=== PATIENT | female | born 1960 | race Caucasian/White ===

== ENCOUNTER 2017-01-19 09:30 | Outpatient (CLI) | payer OTHER ==
--- NOTE | 2017-01-19 11:40 | PRG ---
DATE OF SERVICE: 01/19/2017 HISTORY: Ms. Carey Layne is a very pleasant 56-year-old who presents to the Wound Center for eval uation of an ulceration of the right medial lower leg. The patient previously stated that the ulcer ation began after minor trauma. The patient stated that she hit her right medial lower leg against the brake of her walker approximately 4 weeks prior to her initial presentation to the Wound Center. The patient was seen in the Emergency Department on 11/20/2016 for increased drainage associated w ith her wound. At this time, the patient was placed on Bactrim DS and referred to the Wound Center for further evaluation and treatment. After being seen in the Wound Center, Silverlon, Webril, and 3M Coban 2 layer compression system was applied to the ulceration of the right medial lower leg. Th e patient has been receiving the preceding dressing changes on a weekly basis here in the Wound Cent er. PHYSICAL EXAMINATION: VITAL SIGNS: Temperature 97.8, pulse 78, respirations 17, blood pressure 197/91. Accu-Chek 128. EXTREMITIES: An ulceration of the right medial lower leg is present which measures approximately 1. 6 x 0.8 cm. The dimensions of the wound at the time of the patient's visit on 01/05/2017 were appro ximately 2.9 x 1.6 cm. Granulation tissue is present within the wound margins. Necrotic and nonvia ble tissue present within the wound margins was debrided with an excisional full-thickness debrideme nt with the use of a curette. No purulent drainage is associated with the wound. No cellulitis of the right lower leg is appreciated. No maceration of the skin of the periwound is noted. No signif icant edema of the right foot or lower leg is present on exam today. ASSESSMENT AND PLAN: 1. Chronic venous hypertension with ulcer and inflammation. The patient has previously undergone v enous ablation on the right by Dr. Cardenas in addition to venous ablation on the left subsequently at [facility]. Silverlon, Webril, and the 3M Coban two-layer compression system will be appli ed to the ulceration today. I will see Ms. Layne again in one week. 2. Diabetes mellitus. The patient's Accu-Chek in clinic today is 128. The patient has been remind ed that for optimal wound healing, her blood glucoses should remain below 150. 3. Hypertension. 4. History of deep venous thrombosis of right lower extremity and left lower extremity. 5. Gout. 6. Chronic kidney disease stage 3.
[2017-01-19] MEDS ORDERED: Sodium Chloride 0.9% 15 ML NEB ONE (16:20)
== END 2017-01-19 09:31 | disposition home or self-care (01) ==
LOC: WCC 09:30
PROVIDERS: ATTEND Family Medicine
DX: S81.801D Unspecified open wound, right lower leg, subsequent encounter (principal); S81.802D Unspecified open wound, left lower leg, subsequent encounter
CPT/HCPCS: 11042; A4218

== ENCOUNTER 2017-01-26 10:11 | Outpatient (CLI) | payer OTHER ==
--- NOTE | 2017-01-26 12:00 | PRG ---
DATE OF SERVICE: 01/26/2017 HISTORY: Ms. Carey Layne is a very pleasant 56-year-old who presents to the Wound Center for eval uation of an ulceration of the right medial lower leg. The patient previously stated that the ulcer ation began after minor trauma. The patient stated that she hit her right medial lower leg against a brake of her walker approximately 4 weeks prior to her initial presentation to the Wound Center. The patient was seen in the Emergency Department on 11/20/2016 for increased drainage associated wit h her wound. At this time, the patient was placed on Bactrim DS and referred to the Wound Center [facility] further evaluation and treatment. After being seen in the Wound Center, Silverlon, Webril, and 3M Coban 2 layer compression system were applied to the ulceration of the right medial lower leg. The patient has been receiving the preceding dressing changes on a weekly basis here in the [facility]. PHYSICAL EXAMINATION: VITAL SIGNS: Temperature 98.5, pulse 80, respirations 19, blood pressure 174/88. Accu-Chek 96. EXTREMITIES: An ulceration of the right medial lower leg is present which measures approximately 1. 4 x 0.6 cm. The dimensions of the wound at the time of the patient's visit on 01/19/2017 were appro ximately 1.6 x 0.8 cm. Granulation tissue is present within the wound margins. Necrotic and nonvia ble tissue present within the wound margins was debrided with an excisional full-thickness debrideme nt with the use of a curet. No purulent drainage is associated with the wound. No cellulitis of th e right lower leg is appreciated. No maceration of the skin of the periwound is noted. A dorsalis pedis pulse is palpable on the right. No significant edema of the right foot or lower leg is presen t on exam today. ASSESSMENT AND PLAN: 1. Chronic venous hypertension with ulcer and inflammation. The patient has previously undergone v enous ablation on the right by Dr. Cardenas in addition to venous ablation on the left and subseque ntly at [facility]. Silverlon, Webril, and 3M Coban two-layer compression system will be appli ed to the ulceration today. I will see Ms. Layne again in 1 week. 2. Diabetes mellitus. The patient's Accu-Chek in clinic today is 96. The patient has been reminde d that for optimal wound healing, her blood glucoses should remain below 150. 3. Hypertension. 4. History of deep venous thrombosis of right lower extremity and left lower extremity. 5. Gout. 6. Chronic kidney disease stage 3.
[2017-01-26] MEDS ORDERED: Sodium Chloride 0.9% 15 ML NEB ONE (17:27)
[2017-01-26] MEDS ORDERED: Lidocaine 2% Jelly 5 ML TUBE ONE (17:27)
== END 2017-01-26 10:12 | disposition home or self-care (01) ==
LOC: WCC 10:11
PROVIDERS: ATTEND Family Medicine
DX: I87.331 Chronic venous hypertension (idiopathic) with ulcer and inflammation of right lower extremity (principal); E11.22 Type 2 diabetes mellitus with diabetic chronic kidney disease; I12.9 Hypertensive chronic kidney disease with stage 1 through stage 4 chronic kidney disease, or unspecified chronic kidney disease; N18.3 Chronic kidney disease, stage 3 (moderate); M10.9 Gout, unspecified
CPT/HCPCS: 11042; A4218

== ENCOUNTER 2017-02-02 08:47 | Outpatient (CLI) | payer OTHER ==
--- NOTE | 2017-02-02 11:47 | PRG ---
DATE OF SERVICE: 02/02/2017 SUBJECTIVE: Ms. Carey Layne is a very pleasant 56-year-old, who presents to the Wound Center for evaluation of an ulceration of the right medial lower leg. The patient previously stated that the u lceration began after minor trauma. The patient stated that she hit her right medial lower leg agai nst the brake of her walker approximately 4 weeks prior to her initial presentation to the Wound [facility]. The patient was seen in the Emergency Department on 11/20/2016 for increased drainage associat ed with her wound. At this time, the patient was placed on Bactrim DS and referred to the Wound [facility] for further evaluation and treatment. After being seen in the Wound Center, Silverlon, Webril, and 3M Coban 2 layer compression system were applied to the ulceration of the right medial lower leg . The patient has been receiving the preceding dressing changes on a weekly basis here in the Wound Center. PHYSICAL EXAMINATION: VITAL SIGNS: Temperature 98.5, pulse 76, respirations 17, blood pressure 189/89. Accu-Chek 200. EXTREMITIES: An ulceration of the right medial lower leg is present, which measures approximately 1 .8 x 0.8 cm. Granulation tissue is present within the wound margins. Necrotic and nonviable tissue present within the wound margins was debrided with an excisional full-thickness debridement with th e use of a curette. No purulent drainage is associated with the wound. No cellulitis of the right lower leg is appreciated. No maceration of the skin of the periwound is noted. No significant macey a of the right foot or lower leg is present on exam today. ASSESSMENT AND PLAN: 1. Chronic venous hypertension with ulcer and inflammation. The patient has previously undergone v enous ablation on the right by Dr. Cardenas in addition to venous ablation on the left subsequently at [facility]. Promogran, Silverlon, Webril, and the 3M Coban 2 layer compression system will be applied to the ulceration today. I will see Ms. Layne again in 1 week. 2. Diabetes mellitus. The patient's Accu-Chek in clinic today is 200. The patient has been remind ed that for optimal wound healing, her blood glucoses should remain below 150. 3. Hypertension. 4. History of deep venous thrombosis of right lower extremity and left lower extremity. 5. Gout. 6. Chronic kidney disease stage 3.
[2017-02-02] MEDS ORDERED: Sodium Chloride 0.9% 15 ML NEB ONE (17:26)
[2017-02-02] MEDS ORDERED: Lidocaine 2% Jelly 5 ML TUBE ONE (17:26)
== END 2017-02-02 08:48 | disposition home or self-care (01) ==
LOC: WCC 08:47
PROVIDERS: ATTEND Family Medicine
DX: I87.331 Chronic venous hypertension (idiopathic) with ulcer and inflammation of right lower extremity (principal); L97.919 Non-pressure chronic ulcer of unspecified part of right lower leg with unspecified severity; E11.622 Type 2 diabetes mellitus with other skin ulcer; M10.9 Gout, unspecified; I12.9 Hypertensive chronic kidney disease with stage 1 through stage 4 chronic kidney disease, or unspecified chronic kidney disease; N18.3 Chronic kidney disease, stage 3 (moderate); E11.22 Type 2 diabetes mellitus with diabetic chronic kidney disease
CPT/HCPCS: 11042; A4218

== ENCOUNTER 2017-02-16 08:48 | Outpatient (CLI) | payer OTHER ==
--- NOTE | 2017-02-16 10:15 | PRG ---
DATE OF SERVICE: 02/16/2017 HISTORY: Ms. Carey Layne is a very pleasant 56-year-old who presents to the Wound Center for eval uation of an ulceration of the right medial lower leg. The patient previously stated that the ulcer ation began after minor trauma. The patient stated that she hit her right medial lower leg against a brake of her walker approximately 4 weeks prior to her initial presentation to the Wound Center. The patient was seen in the Emergency Department on 11/20/2016 for increased drainage associated wit h her wound. At this time, the patient was placed on Bactrim DS and referred to the Wound Center fo r further evaluation and treatment. After being seen in the Wound Center, Silverlon, Webril, and 3M Coban 2 layer compression system were applied to the ulceration of the right medial lower leg. The patient has been receiving dressing changes of the 3M Coban 2 layer compression system on a weekly basis here in the Wound Center. Promogran has also been added to the patient's regimen. PHYSICAL EXAMINATION: VITAL SIGNS: Temperature 97.9, pulse 75, respirations 17, blood pressure 190/87. Accu-Chek 174. EXTREMITIES: An ulceration of the right medial lower leg is present which measures approximately 1. 3 x 0.6 cm. The dimensions of the wound at the time of the patient's visit on 02/02/2017 were appro ximately 1.8 x 0.8 cm. Granulation tissue is present within the wound margins. Necrotic and nonvia ble tissue present within the wound margins was debrided with an excisional full-thickness debrideme nt with the use of a curet. No purulent drainage is associated with the wound. No cellulitis of th e right lower leg is appreciated. No maceration of the skin of the periwound is noted. A dorsalis pedis pulse is palpable on the right. No significant edema of the right foot or lower leg is presen t on exam today. ASSESSMENT AND PLAN: 1. Chronic venous hypertension with ulcer and inflammation. The patient has previously undergone v enous ablation on the right by Dr. Cardenas in addition to venous ablation on the left subsequently at [facility]. Promogran, Silverlon, Webril, and the 3M Coban two-layer compression system wi ll be applied to the ulceration today. I will see Ms. Layne again in 1 week. 2. Diabetes mellitus. The patient's Accu-Chek in clinic today is 174. The patient has been remind ed that for optimal wound healing, her blood glucoses should remain below 150. 3. Hypertension. 4. History of deep venous thrombosis of right lower extremity and left lower extremity. 5. Gout. 6. Chronic kidney disease stage 3.
[2017-02-16] MEDS ORDERED: Lidocaine 2% Jelly 5 ML TUBE ONE (17:01)
[2017-02-16] MEDS ORDERED: Sodium Chloride 0.9% 15 ML NEB ONE (17:01)
== END 2017-02-16 08:49 | disposition home or self-care (01) ==
LOC: WCC 08:48
PROVIDERS: ATTEND Family Medicine
DX: I87.331 Chronic venous hypertension (idiopathic) with ulcer and inflammation of right lower extremity (principal); L97.919 Non-pressure chronic ulcer of unspecified part of right lower leg with unspecified severity; E11.622 Type 2 diabetes mellitus with other skin ulcer; M10.9 Gout, unspecified; I12.9 Hypertensive chronic kidney disease with stage 1 through stage 4 chronic kidney disease, or unspecified chronic kidney disease; E11.22 Type 2 diabetes mellitus with diabetic chronic kidney disease; N18.3 Chronic kidney disease, stage 3 (moderate)
CPT/HCPCS: 11042; A4218

== ENCOUNTER 2017-05-16 10:27 | Outpatient (CLI) | payer OTHER ==
--- NOTE | 2017-05-16 11:46 | PRG ---
DATE OF SERVICE: 05/16/2017 HISTORY: Ms. Carey Layne is a very pleasant 56-year-old previously seen in the Wound Center for an ulceration of the right medial lower leg. This ulceration has almost healed completely, and the patient is presently performing dressing changes of Silverlon followed by a waterproof dressing. Today, Ms. Layne presents for evaluation of an ulceration of the left heel. The patient states that a blister of her left heel developed all of a sudden approximately 4 days ago. She denies any history of trauma or ill-fitting shoes which may have precipitated the appearance of the blister. The patient states that she was evaluated in the Emergency Department yesterday and at this time referred to the Wound Center for further evaluation and treatment. The patient states that the wound of her left heel was dressed with an antibiotic ointment in the Emergency Department followed by 4 x 4s and Kerlix. Today, the patient states that she cleansed her left heel wound with saline and then applied 4 x 4s and Kerlix. PHYSICAL EXAMINATION: VITAL SIGNS: Temperature 98.1, pulse 78, respirations 20, blood pressure 227/ 111. Accu-Chek 160. EXTREMITIES: An ulceration of the left heel is present which measures approximately 3.5 x 4.0 cm. Granulation tissue is present within the wound margins. Necrotic and nonviable tissue present within the wound margins was debrided with an excisional full-thickness debridement with the use of a curette and scissors. No purulent drainage is associated with the wound. Erythema of the skin surrounding the wound is present. No maceration of the skin of the periwound is noted. A dorsalis pedis pulse is palpable on the left. No significant edema of the left foot or lower leg is present on exam today. ASSESSMENT AND PLAN: 1. Left heel ulceration as described above. Dressing changes of Silverlon, 4 x 4s, and Kerlix will be initiated today. These dressing changes are to be performed on a daily basis or alternatively three times per week after cleansing and irrigation. The patient will be performing her own dressing changes. The patient has also been given a prescription for Bactrim DS #20 one p.o. b.i.d. x10 days. The patient reports a history of a Staphylococcal infection in association with one of her previous back surgeries. I will see Ms. Trim again in 1 week. 2. Chronic venous hypertension with ulcer and inflammation. The ulceration of the right medial lower leg has almost healed completely. Dressing changes of Silverlon and bordered gauze are also to be performed on a daily basis or alternatively three times per week after cleansing and irrigation. 3. Diabetes mellitus. The patient's Accu-Chek in clinic today is 160. The patient has been told that for optimal wound healing, her blood glucoses should remain below 150. 4. Hypertension. The patient has been referred to the Emergency Department for further evaluation and treatment. The patient has been told that if she chooses not to report to the Emergency Department today, she should notify her primary care physician today of her blood pressure measurement obtained in clinic today. 5. History of deep venous thrombosis of right lower extremity and left lower extremity. 6. Gout. 7. Chronic kidney disease stage 3. MTDD
[2017-05-16] MEDS ORDERED: Lidocaine 2% Jelly 5 ML TUBE ONE (16:55)
[2017-05-16] MEDS ORDERED: Lidocaine 2% MPF 10 ML AMP (For Epidural Use) ONE (16:55)
== END 2017-05-16 10:28 | disposition home or self-care (01) ==
LOC: WCC 10:27
PROVIDERS: ATTEND Family Medicine
DX: E11.622 Type 2 diabetes mellitus with other skin ulcer (principal); L97.429 Non-pressure chronic ulcer of left heel and midfoot with unspecified severity; I87.321 Chronic venous hypertension (idiopathic) with inflammation of right lower extremity; I12.9 Hypertensive chronic kidney disease with stage 1 through stage 4 chronic kidney disease, or unspecified chronic kidney disease; E11.22 Type 2 diabetes mellitus with diabetic chronic kidney disease; N18.3 Chronic kidney disease, stage 3 (moderate); M10.9 Gout, unspecified; Z86.718 Personal history of other venous thrombosis and embolism
CPT/HCPCS: 11042; 99212; G0463; J2001

== ENCOUNTER 2017-05-23 09:41 | Outpatient (CLI) | payer OTHER ==
--- NOTE | 2017-05-23 11:30 | PRG ---
DATE OF SERVICE: 05/23/2017 HISTORY: Ms. Carey Layne is a very pleasant 57-year-old who presents to the Wound Center for evaluation of an ulceration of the left heel. On 05/16/2017 the patient stated that a blister of her left heel developed all of a sudden, approximately 4 days previously. She denied any history of trauma or ill- fitting shoes, which may have precipitated the appearance of the blister. The patient stated that she was evaluated in the Emergency Department on 05/15/2017 and at this time referred to the Wound Center for further evaluation and treatment. The patient stated that the wound of her left heel was dressed with an antibiotic ointment in the Emergency Department followed by 4 x 4s and Kerlix. The patient states she later cleansed her wound of the left heel with saline and applied 4 x 4s and Kerlix. After being seen in the Wound Center, dressing changes of Silverlon, 4 x 4s, Kerlix, and Coban were initiated. The patient states she has been performing these dressing changes 2-3 times per week after cleansing and irrigation. PHYSICAL EXAMINATION: VITAL SIGNS: Temperature 97.5, pulse 63, respirations 19, blood pressure 160/ 83. Accu-Chek 167. EXTREMITIES: An ulceration of the left heel is present, which measures approximately 2.3 x 2.5 cm. Granulation tissue is present within the wound margins. Necrotic and nonviable tissue present within the wound margins was debrided with an excisional full-thickness debridement with the use of a curette. No purulent drainage is associated with the wound. No erythema of the skin surrounding the wound is present. No maceration of the skin of the periwound is noted. A dorsalis pedis pulse is palpable on the left. No significant edema of the left foot or lower leg is present on exam today. ASSESSMENT AND PLAN: 1. Left heel ulceration as described above. Dressing changes of Silverlon, 4 x 4s, Kerlix, and Coban will be continued 3 times per week after cleansing and irrigation. The patient will be performing her own dressing changes. The patient has been asked to continue Bactrim DS as previously prescribed. The patient previously reported a history of a Staphylococcal infection in association with one of her prior back surgeries. I will see Ms. Layne again in 1 week. 2. Chronic venous hypertension with ulcer and inflammation. The ulceration of the right medial lower leg has healed completely. 3. Diabetes mellitus. The patient's Accu-Chek in clinic today is 167. The patient has been reminded that for optimal wound healing, her blood glucoses should remain below 150. 4. Hypertension. 5. History of deep venous thrombosis of right lower extremity and left lower extremity. 6. Gout. 7. Chronic kidney disease, stage 3. MTDD
== END 2017-05-23 09:42 | disposition home or self-care (01) ==
LOC: WCC 09:41
PROVIDERS: ATTEND Family Medicine
DX: S91.302D Unspecified open wound, left foot, subsequent encounter (principal); S81.001D Unspecified open wound, right knee, subsequent encounter
CPT/HCPCS: 11042

== ENCOUNTER 2018-08-09 10:41 | Outpatient (CLI) | payer OTHER ==
--- NOTE | 2018-08-09 09:44 | PRG ---
DATE OF SERVICE: 08/09/2018 HISTORY: Ms. Carey Layne is a very pleasant 58-year-old who presents to the Wound Center for evaluation of an ulceration of the right anterior lower leg. The patient states that the wound began after her vacuum ribbon cleaner slipped from her hands falling on to her right anterior lower leg. The patient states that she developed a "blood blister" for which she has been seen by her primary care provider and in the emergency department. The patient was last seen in the Wound Center on 05/23/2017 for an ulceration of the left heel. The patient has no other complaints today. She denies any fever or chills. PHYSICAL EXAMINATION: VITAL SIGNS: Temperature 97.8, pulse 79, respirations 16, blood pressure 176/79. Accu-Chek 174. EXTREMITIES: An ulceration of the right anterior lower leg is present which measures approximately 2.7 x 2.2 cm. Eschar covers the wound bed in its entirety. No purulent drainage is associated with the wound. No erythema of the skin surrounding the wound is present. No maceration of the skin of the periwound is noted. A dorsalis pedis pulse is palpable on the right. Lirg-af-grsylksp edema of the right foot and lower leg is present on exam today. ASSESSMENT AND PLAN: 1. Chronic venous hypertension with ulceration. Silvercel, Webril and the 3M Coban 2 Layer Compression System will be applied to the ulceration today. No antibiotics will be prescribed today based upon the appearance of the wound. I will see Ms. Layne again in 1 week. The patient has been asked to keep compression wrap applied in clinic today, clean and dry until her followup visit in 1 week. 2. Diabetes mellitus. The patient's Accu-Chek in clinic today is 174. The patient has been told that for optimal wound healing her blood glucoses should remain below 150. 3. Hypertension. 4. History of deep venous thrombosis of right lower extremity and left lower extremity. 5. Gout. 6. Chronic kidney disease stage 3. Job ID: [id number]
[2018-08-09] MEDS ORDERED: Sodium Chloride 0.9% 15 ML NEB ONE (15:05)
== END 2018-08-09 10:42 | disposition home or self-care (01) ==
LOC: WCC 10:41
PROVIDERS: ATTEND Family Medicine
DX: I87.311 Chronic venous hypertension (idiopathic) with ulcer of right lower extremity (principal); E11.622 Type 2 diabetes mellitus with other skin ulcer; L97.919 Non-pressure chronic ulcer of unspecified part of right lower leg with unspecified severity; M10.9 Gout, unspecified; I12.9 Hypertensive chronic kidney disease with stage 1 through stage 4 chronic kidney disease, or unspecified chronic kidney disease; E11.22 Type 2 diabetes mellitus with diabetic chronic kidney disease; N18.3 Chronic kidney disease, stage 3 (moderate); Z86.718 Personal history of other venous thrombosis and embolism
CPT/HCPCS: 97602; 99213; A4218; G0463

== ENCOUNTER 2018-08-16 10:07 | Outpatient (CLI) | payer OTHER ==
[~2018-08-16 10:07] MED LIST: Lidocaine 2% PF 100 mg/5 ml Syringe ONE; Sodium Chloride 0.9% 15 ML NEB ONE
--- NOTE | 2018-08-16 13:50 | PRG ---
DATE OF SERVICE: 08/16/2018 HISTORY: Ms. Carey Layne is a very pleasant 58-year-old, who presents to the Wound Center for evaluation of an ulceration of the right anterior lower leg. The patient previously stated that the wound began after her vacuum aircraft cabin cleaner slipped from her hands falling on to her right anterior lower leg. The patient stated that she developed a "blood blister," for which she was seen by her primary care provider and in the emergency department. At the time of the patient's last visit, Silvercel, Webril and the 3M Coban 2 Layer Compression System were applied to the ulceration. PHYSICAL EXAMINATION: VITAL SIGNS: Temperature 98.5, pulse 81, respirations 18, and blood pressure 153/68. Accu-Chek 202. EXTREMITIES: An ulceration of the right anterior lower leg is present, which measures approximately 3.2 x 2.8 cm. Granulation tissue is present within the wound margins. Necrotic and nonviable tissue present within the wound margins was debrided with an excisional full-thickness debridement with the use of a curette. No purulent drainage is associated with the wound. No cellulitis of the right anterior lower leg is appreciated. No maceration of the skin of the periwound is noted. A dorsalis pedis pulse is palpable on the right. Bvya-ox-rmmilvlc edema of the right foot and lower leg is present on exam today. ASSESSMENT AND PLAN: 1. Chronic venous hypertension with ulceration. Silverlon, Webril and the 3M Coban 2 Layer Compression System will be applied to the ulceration today. I will see Ms. Layne again in 1 week. 2. Diabetes mellitus. The patient's Accu-Chek in clinic today is 202. The patient has been reminded that for optimal wound healing, her blood glucoses should remain below 150. 3. Hypertension. 4. History of deep venous thrombosis of right lower extremity and left lower extremity. 5. Gout. 6. Chronic kidney disease, stage 3. Job ID: [id number]
== END 2018-08-16 10:08 | disposition home or self-care (01) ==
LOC: WCC 10:07
PROVIDERS: ATTEND Family Medicine
DX: I87.311 Chronic venous hypertension (idiopathic) with ulcer of right lower extremity (principal); L97.919 Non-pressure chronic ulcer of unspecified part of right lower leg with unspecified severity; E11.621 Type 2 diabetes mellitus with foot ulcer; N18.3 Chronic kidney disease, stage 3 (moderate); M10.9 Gout, unspecified; Z86.73 Personal history of transient ischemic attack (TIA), and cerebral infarction without residual deficits
CPT/HCPCS: 11042; A4218; J2001

== ENCOUNTER 2018-08-23 15:04 | Outpatient (CLI) | payer OTHER ==
[2018-08-23] MEDS ORDERED: Sodium Chloride 0.9% 15 ML NEB ONE (18:00)
== END 2018-08-23 15:05 | disposition home or self-care (01) ==
LOC: WCC 15:04
PROVIDERS: ATTEND Family Medicine
DX: I87.311 Chronic venous hypertension (idiopathic) with ulcer of right lower extremity (principal); E11.622 Type 2 diabetes mellitus with other skin ulcer; L97.919 Non-pressure chronic ulcer of unspecified part of right lower leg with unspecified severity; I12.9 Hypertensive chronic kidney disease with stage 1 through stage 4 chronic kidney disease, or unspecified chronic kidney disease; N18.3 Chronic kidney disease, stage 3 (moderate); M10.9 Gout, unspecified; Z86.718 Personal history of other venous thrombosis and embolism
CPT/HCPCS: 29581; A4218

== ENCOUNTER 2018-08-30 10:56 | Outpatient (CLI) | payer OTHER ==
[2018-08-30] MEDS ORDERED: Sodium Chloride 0.9% 15 ML NEB ONE (18:00)
--- NOTE | 2018-08-30 18:23 | PRG ---
DATE OF SERVICE: 08/30/2018 HISTORY: Ms. Carey Layne is a very pleasant 58-year-old, who presents to the Wound Center for evaluation of an ulceration of the right anterior lower leg. The patient previously stated that the wound began after her vacuum hide cleaner slipped from her hands falling onto her right anterior lower leg. The patient stated that she developed a "blood blister" for which she was seen by her primary care provider and in the emergency department. At the time of the patient's last visit, PolyMem Silver, ABD, Webril, and the 3M Coban 2 Layer Compression System were applied to the ulceration. PHYSICAL EXAMINATION: VITAL SIGNS: Temperature 98.2, pulse 83, respirations 18, and blood pressure 176/73. Accu-Chek 123. EXTREMITIES: An ulceration of the right anterior lower leg is present, which measures approximately 2.5 x 1.8 cm. The dimensions of the wound at the time of the patient's visit on 08/16/2018, were approximately 3.2 x 2.8 cm. Granulation tissue is present within the wound margins. No purulent drainage is associated with the wound. No cellulitis of the right anterior lower leg is appreciated. No maceration of the skin of the periwound is noted. Sjmv-hs-yupqinkp edema of the right foot and lower leg is present on exam today. ASSESSMENT AND PLAN: 1. Chronic venous hypertension with ulceration. Promogran, an ABD, and 3M Coban 2 Layer Compression System will be applied to the ulceration today. I will see Ms. Layne again in 1 week. 2. Diabetes mellitus. The patient's Accu-Chek in clinic today is 123. The patient has been reminded that for optimal wound healing, her blood glucoses should remain below 150. 3. Hypertension. 4. History of deep venous thrombosis of right lower extremity and left lower extremity. 5. Gout. 6. Chronic kidney disease, stage 3. Job ID: [id number]
== END 2018-08-30 10:57 | disposition home or self-care (01) ==
LOC: WCC 10:56
PROVIDERS: ATTEND Family Medicine
DX: I87.311 Chronic venous hypertension (idiopathic) with ulcer of right lower extremity (principal); E11.622 Type 2 diabetes mellitus with other skin ulcer; L97.919 Non-pressure chronic ulcer of unspecified part of right lower leg with unspecified severity; I12.9 Hypertensive chronic kidney disease with stage 1 through stage 4 chronic kidney disease, or unspecified chronic kidney disease; E11.22 Type 2 diabetes mellitus with diabetic chronic kidney disease; N18.3 Chronic kidney disease, stage 3 (moderate); M10.9 Gout, unspecified; Z86.718 Personal history of other venous thrombosis and embolism
CPT/HCPCS: 29581; A4218

== ENCOUNTER 2018-09-07 11:21 | Outpatient (CLI) | payer OTHER ==
[~2018-09-07 11:21] MED LIST changes: -Lidocaine 2% PF 100 mg/5 ml Syringe ONE
--- NOTE | 2018-09-07 12:28 | PRG ---
DATE OF SERVICE: 09/07/2018 HISTORY: Ms. Carey Layne is a very pleasant 58-year-old, who presents to the Wound Center for evaluation of an ulceration of the right anterior lower leg. The patient previously stated that the wound began after her vacuum lingo cleaner slipped from her hands falling onto her right anterior lower leg. The patient stated that she developed a "blood blister", for which she was seen by her primary care provider and in the emergency department. At the time of the patient's last visit, Promogran, an ABD, and the 3M Coban 2 Layer Compression System were applied to the ulceration. PHYSICAL EXAMINATION: VITAL SIGNS: Temperature 97.8, pulse 72, respirations 19, blood pressure 112/51. Accu-Chek 133. EXTREMITIES: An ulceration of the right anterior lower leg is present, which measures approximately 2.0 x 1.9 cm. The dimensions of the wound at the time of the patient's visit on 08/30/2018, were approximately 2.5 x 1.8 cm. Granulation tissue is present within the wound margins. No purulent drainage is associated with the wound. No cellulitis of the right anterior lower leg is appreciated. No maceration of the skin of the periwound is noted. Gkxb-dd-fsovjomd edema of the right foot and lower leg is present on exam today. ASSESSMENT AND PLAN: 1. Chronic venous hypertension with ulceration. Promogran, an ABD, and the 3M Coban 2 Layer Compression System will be applied to the ulceration today. I will see Ms. Layne again in 1 week. 2. Diabetes mellitus. The patient's Accu-Chek in clinic today is 133. The patient has been reminded that for optimal wound healing, her blood glucoses should remain below 150. 3. Hypertension. 4. History of deep venous thrombosis of right lower extremity and left lower extremity. 5. Gout. 6. Chronic kidney disease, stage 3. Job ID: [id number]
== END 2018-09-07 11:22 | disposition home or self-care (01) ==
LOC: WCC 11:21
PROVIDERS: ATTEND Family Medicine
DX: I87.311 Chronic venous hypertension (idiopathic) with ulcer of right lower extremity (principal); E11.22 Type 2 diabetes mellitus with diabetic chronic kidney disease; N18.3 Chronic kidney disease, stage 3 (moderate); I10 Essential (primary) hypertension; M10.9 Gout, unspecified; Z86.718 Personal history of other venous thrombosis and embolism
CPT/HCPCS: A4218

== ENCOUNTER 2018-09-14 10:42 | Outpatient (CLI) | payer OTHER ==
--- NOTE | 2018-09-14 11:43 | PRG ---
DATE OF SERVICE: 09/14/2018 HISTORY: Ms. Carey Layne is a very pleasant 58-year-old, who presents to the wound center for evaluation of an ulceration of the right anterior lower leg. Previously, the patient stated that the wound began after her vacuum cutch cleaner slipped from her hands falling onto her right anterior lower leg. The patient stated that she developed a blood blister for which she was seen by her primary care provider and in the emergency department. The patient has been receiving dressing changes of Promogran, an ABD, and 3M Coban 2 Layer Compression System on a weekly basis here in the wound center. PHYSICAL EXAMINATION: VITAL SIGNS: Temperature 97.6, pulse 80, respirations 20, blood pressure 149/70. Accu-Chek 148. EXTREMITIES: An ulceration of the right anterior lower leg is present which measures approximately 1.3 x 0.9 cm. The dimensions of the wound at the time of the patient's visit on 09/07/2018 were approximately 2.0 x 1.9 cm. Granulation tissue is present within the wound margins. No purulent drainage is associated with the wound. No cellulitis of the right anterior lower leg is appreciated. No maceration of the skin of the periwound is noted. [id number] edema of the right foot and lower leg is present on today's exam. ASSESSMENT AND PLAN: 1. Chronic venous hypertension with ulceration. Promogran, an ABD, and 3M Coban 2 Layer Compression System will be applied to the ulceration today. I will see Ms. Layne again in 1 week. 2. Diabetes mellitus. The patient's Accu-Chek in clinic today is 148. The patient has been reminded that for optimal wound healing her blood glucoses should remain below 150. 3. Hypertension. 4. History of deep venous thrombosis of right lower extremity and left lower extremity. 5. Gout. 6. Chronic kidney disease stage 3. Job ID: [id number]
== END 2018-09-14 10:43 | disposition home or self-care (01) ==
LOC: WCC 10:42
PROVIDERS: ATTEND Family Medicine
DX: I87.311 Chronic venous hypertension (idiopathic) with ulcer of right lower extremity (principal); L97.919 Non-pressure chronic ulcer of unspecified part of right lower leg with unspecified severity; I12.9 Hypertensive chronic kidney disease with stage 1 through stage 4 chronic kidney disease, or unspecified chronic kidney disease; E11.22 Type 2 diabetes mellitus with diabetic chronic kidney disease; N18.3 Chronic kidney disease, stage 3 (moderate); M10.9 Gout, unspecified
CPT/HCPCS: 29581; A4218

== ENCOUNTER 2018-09-21 12:11 | Outpatient (CLI) | payer OTHER ==
--- NOTE | 2018-09-21 11:35 | PRG ---
DATE OF SERVICE: 09/21/2018 HISTORY: Ms. Carey Layne is a very pleasant 58-year-old, who presents to the Wound Center for evaluation of an ulceration of the right anterior lower leg. Previously, the patient stated that the wound began after her vacuum cotton cleaner slipped from her hands falling onto her right anterior lower leg. The patient stated that she developed a blood blister, for which she was seen by her primary care provider and in the emergency department. The patient has been receiving dressing changes of Promogran, an ABD, and the 3M Coban 2 Layer Compression System on a weekly basis here in the Wound Center. PHYSICAL EXAMINATION: VITAL SIGNS: Temperature 98.0, pulse 73, respirations 19, and blood pressure 121/56. Accu-Chek 171. EXTREMITIES: The ulceration of the right anterior lower leg has healed completely. A dorsalis pedis pulse is easily palpable on the right. No significant edema of the right foot or lower leg is present on exam today. ASSESSMENT AND PLAN: 1. Chronic venous hypertension with ulceration. As stated above, the ulceration has completely healed. An ABD and the 3M Coban 2 Layer Compression System will be applied to the newly healed ulceration today. The patient has been instructed to discontinue the compression wrap in 1 week and begin utilizing her compression garments. The patient understands and is in agreement with the preceding treatment plan. Ms. Layne will be discharged from clinic today with followup on a p.r.n. basis. 2. Diabetes mellitus. The patient's Accu-Chek in clinic today is 171. The patient has been reminded that for optimal wound healing, her blood glucoses should remain below 150. 3. Hypertension. 4. History of deep venous thrombosis of right lower extremity and left lower extremity. 5. Gout. 6. Chronic kidney disease, stage 3. Job ID: [id number]
[2018-09-21] MEDS ORDERED: Sodium Chloride 0.9% 15 ML NEB ONE (15:00)
== END 2018-09-21 12:12 | disposition home or self-care (01) ==
LOC: WCC 12:11
PROVIDERS: ATTEND Family Medicine
DX: I87.301 Chronic venous hypertension (idiopathic) without complications of right lower extremity (principal); E11.22 Type 2 diabetes mellitus with diabetic chronic kidney disease; I12.9 Hypertensive chronic kidney disease with stage 1 through stage 4 chronic kidney disease, or unspecified chronic kidney disease; N18.3 Chronic kidney disease, stage 3 (moderate); M10.9 Gout, unspecified; Z86.718 Personal history of other venous thrombosis and embolism
CPT/HCPCS: 29581; A4218

== ENCOUNTER 2019-02-21 10:19 | Outpatient (CLI) | payer OTHER ==
[~2019-02-21 10:19] MED LIST changes: +Lidocaine 2% PF 100 mg/5 ml Syringe ONE
--- NOTE | 2019-02-21 11:34 | PRG ---
DATE OF SERVICE: 02/21/2019 HISTORY: Ms. Carey Layne is a very pleasant 58-year-old, who presents to the wound center for evaluation of an ulceration of the left anterior lower leg. The patient states that a shelf fell on to her left anterior lower leg causing a laceration requiring the placement of 13 sutures approximately 3 weeks ago. She states that 10 days after placement, the sutures were removed. She states that at the time of suture removal, Steri-Strips and Mastisol were applied to the wound. The patient states that the following day, she appeared to have had an allergic reaction to the application of the Steri-Strips and Mastisol. The patient states that she was seen in the Emergency Department again, and placed on p.o. Bactrim and Keflex. The patient states that she is taking the Bactrim and Keflex as prescribed. PHYSICAL EXAMINATION: VITAL SIGNS: Temperature 97.7, pulse 77, respirations 24, and blood pressure 160/74. Accu-Chek 210. EXTREMITIES: The ulceration of the left anterior lower leg measures approximately 1.6 x 4.5 cm. Necrotic and nonviable tissue present within the wound margins were debrided with an excisional full-thickness debridement with the use of a curette. No purulent drainage is associated with the wound. No erythema of the skin surrounding the wound is present. No maceration of the skin of the periwound is noted. A dorsalis pedis pulse is palpable on the left. Ggvm-al-[id number] edema of the left foot and lower leg is present on exam today. ASSESSMENT AND PLAN: 1. Chronic venous hypertension with ulceration. Chloé, followed by an ABD and 3M Coban 2 Layer Compression System will be applied to the ulceration today. I will see Ms. Layne again in 1 week. The patient has been asked to keep the compression wrap clean, dry, and intact until her followup visit in 1 week. 2. Diabetes mellitus. The patient's Accu-Chek in clinic today is 210. The patient has been reminded that for optimal wound healing her blood glucoses should remain below 150. 3. Hypertension. 4. History of deep venous thrombosis of right lower extremity and left lower extremity. 5. Gout. 6. Chronic kidney disease, stage 3. Job ID: [id number]
== END 2019-02-21 10:20 | disposition home or self-care (01) ==
LOC: WCC 10:19
PROVIDERS: ATTEND Family Medicine
DX: I87.312 Chronic venous hypertension (idiopathic) with ulcer of left lower extremity (principal); L97.929 Non-pressure chronic ulcer of unspecified part of left lower leg with unspecified severity; E11.622 Type 2 diabetes mellitus with other skin ulcer; E11.22 Type 2 diabetes mellitus with diabetic chronic kidney disease; I12.9 Hypertensive chronic kidney disease with stage 1 through stage 4 chronic kidney disease, or unspecified chronic kidney disease; M10.9 Gout, unspecified; N18.3 Chronic kidney disease, stage 3 (moderate)
CPT/HCPCS: A4218; J2001

== ENCOUNTER 2019-10-30 13:23 | Inpatient (IN) | payer OTHER ==
[~2019-10-30 13:23] MED LIST changes: +Glycopyrrolate 0.2 MG/ML 5 ML SYRINGE ONE; -Lidocaine 2% PF 100 mg/5 ml Syringe ONE; +Ondansetron PF 4 MG/2 ML Vial ONE; +PHENYLEPHRINE-NS 100 MCG/ML 10 ML SYRINGE ONE; +PROPOFOL 200 MG/20 ML VIAL ONE; +Rocuronium Bromide 10 MG/ML (10ML VIAL) ONE; -Sodium Chloride 0.9% 15 ML NEB ONE; +Succinylcholine Chloride 20 MG/ML 10 ml SYRINGE FS ONE
[2019-10-30] MEDS ORDERED: Adacel (T-DAP) 0.5 ML SYRINGE ONE (13:33)
[2019-10-30 13:46] LABS: #Basophils 0.1 thou/uL (0.0-0.2); #Eosinphils 0.3 thou/uL (0.0-0.7); #Lymphocytes 1.5 thou/uL (1.20-3.40); #Monocytes 0.6 thou/uL (0.11-0.59); #Neutrophils 7.8 thou/uL (1.40-6.50); %Basophils 0.5 % (0.0-1.0); %Eosinophils 3.1 % (0.0-10.0); %Lymphocytes 14.6 % (21.0-51.0); %Monocytes 6.1 % (0.0-10.0); %Neutrophils 75.7 % (42.0-75.0); Hemoglobin 9.9 g/dL (12.0-16.0); Mean Corpuscular HGB CONC 32.7 g/dL (32.0-36.0); Mean Corpuscular Hemoglobin 29.1 pg (27.0-31.0); Mean Corpuscular Volume 88.9 fL (78.0-98.0); Mean Platelet Volume 8.1 fL (7.4-10.4); Platelet Count 187 thou/uL (130-400); RBC Distribution Width 14.5 % (11.5-14.5); Red Blood Cell (RBC) Count 3.39 mill/uL (4.20-5.40); White Blood Cell (WBC) Count 10.3 thou/uL (4.8-10.8)
[2019-10-30 13:52] LABS: INR-International Normal Ratio 1.3; PTT 29.7 sec (22.9-36.1); Prothrombin Time 16.4 sec (12.0-14.7)
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
[2019-10-30] MEDS ORDERED: Ondansetron PF 4 MG/2 ML Vial ONE ×3 (14:02→22:34)
[2019-10-30 14:07] LABS: ALT (SGPT) 27 U/L (8-55); AST (SGOT) 21 U/L (5-34); Albumin 3.5 g/dL (3.5-5.0); Alkaline Phosphatase 97 U/L (40-110); Anion Gap 15 mmol/L (10-20); BUN (Urea Nitrogen) 57 mg/dL (9.8-20.1); Bilirubin, Total 0.6 mg/dL (0.2-1.2); Calc. Creatinine Clearance 0 mL/min (70-130); Calcium 9.2 mg/dL (7.8-10.44); Carbon Dioxide 23 mmol/L (22-29); Chloride 109 mmol/L (98-107); Estimated GFR-MDRD 32; Glucose 151 mg/dL (70-105); Potassium 3.8 mmol/L (3.5-5.1); Protein, Total 5.5 g/dL (6.0-8.3); Sodium 143 mmol/L (136-145)
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
[2019-10-30] MEDS ORDERED: Bacitracin 1 PK ONE (14:25)
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
[2019-10-30] MEDS ORDERED: Morphine 4 MG/ML VIAL ONE ×2 (14:39→15:06)
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
[2019-10-30] MEDS ORDERED: Neomycin-Polymyxin 1 ML AMP ONE ×2 (15:27→17:29)
[2019-10-30] MEDS ORDERED: Bupivacaine PF 0.5% 30 ML VIAL ONE (15:27)
[2019-10-30] MEDS ORDERED: Promethazine HCl 25 MG/ML VIAL ONE (15:38)
[2019-10-30] MEDS ORDERED: Ketorolac Tromethamine 30 MG/ML VIAL ONE (15:38)
[2019-10-30] MEDS ORDERED: Communication Order-Pharmacy FS SCH (15:45)
[2019-10-30] MEDS ORDERED: TETANUS AND DIPHTHERIA TOX/PF 0.5 ML DISP.SYRIN IM SCH (15:45)
[2019-10-30] MEDS ORDERED: Dextrose 5% in Water 1,000 ML IV PRN (15:50)
[2019-10-30] MEDS ORDERED: Dextrose 50% Abboject 50 ML SYRINGE SLOW IVP PRN (15:50)
[2019-10-30] MEDS ORDERED: Promethazine HCl 25 MG/ML VIAL IM PRN ×2 (15:50→17:28)
[2019-10-30] MEDS ORDERED: Insulin Regular 300 UNITS/3 ML VIAL SC PRN (15:50)
[2019-10-30] MEDS ORDERED: Morphine 2 MG/ML SYRINGE SLOW IVP PRN (15:50)
[2019-10-30] MEDS ORDERED: traMADol HCl 50 MG TAB PO PRN (16:02)
[2019-10-30] MEDS ORDERED: Acetaminophen 500 MG TAB PO SCH (16:15)
[2019-10-30] MEDS ORDERED: Iopamidol 370 76% 100 ML VIAL ONE (16:30)
[2019-10-30 16:31] LABS: Phosphorus 4.7 mg/dL (2.3-4.7)
[2019-10-30] MEDS ORDERED: Promethazine HCl 25 MG/ML VIAL SLOW IVP PRN (17:28)
[2019-10-30] MEDS ORDERED: Ondansetron HCl/PF 4 MG/2 ML Vial IVP PRN (17:28)
[2019-10-30] MEDS ORDERED: Sodium Chloride 0.9% 100 ML ONE (17:29)
[2019-10-30] MEDS ORDERED: cefTRIAXone\\ROCEPHIN 2 GM VIAL ONE (17:29)
[2019-10-30] MEDS ORDERED: metroNIDAZOLE 500 MG/100 ML BAG ONE (17:29)
[2019-10-30] MEDS ORDERED: Lidocaine 2% Jelly 5 ML TUBE ONE (17:47)
[2019-10-30] MEDS ORDERED: Fentanyl 100 MCG/2 ML VIAL ONE ×2 (17:47→20:49)
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
[2019-10-30] MEDS ORDERED: Morphine 2 MG/ML VIAL SLOW IVP PRN (19:50)
[2019-10-30] MEDS ORDERED: Aspirin 81 mg Enteric Coated Tablet PO SCH (21:00)
[2019-10-30] MEDS ORDERED: Famotidine/PF 20 mg/2ml Vial SLOW IVP SCH (21:00)
--- NOTE | 2019-10-30 21:54 | RAD ---
LEFT ANKLE: 10/30/19 Two fluoroscopic views from OR. INDICATIONS: Intraoperative imaging during open reduction internal fixation of left ankle. FINDINGS/IMPRESSION: These views demonstrate a single pin transfixing the calcaneus, talus and tibia. Ankle fractures are again noted. POS: AGW
[2019-10-30 23:22] LABS: Hemoglobin 8.5 g/dL (12.0-16.0); Mean Corpuscular HGB CONC 32.6 g/dL (32.0-36.0); Mean Corpuscular Hemoglobin 29.6 pg (27.0-31.0); Mean Corpuscular Volume 90.8 fL (78.0-98.0); Mean Platelet Volume 8.3 fL (7.4-10.4); Platelet Count 159 thou/uL (130-400); RBC Distribution Width 14.5 % (11.5-14.5); Red Blood Cell (RBC) Count 2.86 mill/uL (4.20-5.40); White Blood Cell (WBC) Count 12.3 thou/uL (4.8-10.8)
[2019-10-30] MEDS: traMADol HCl 50 MG TAB PO SCH ×2 (23:30→23:40)
[2019-10-30] MEDS: Acetaminophen 500 MG TAB PO SCH ×2 (23:30→23:39)
[2019-10-30] MEDS: Ferrous Sulfate 325 MG TAB PO SCH (23:30)
[2019-10-30] MEDS: Sodium Chloride 0.9% 1,000 ML IV SCH (23:38)
[2019-10-30] MEDS: metroNIDAZOLE 500 MG in Premix Bag 1 BAG IVPB SCH (23:38)
[2019-10-30 23:42] LABS: Anion Gap 15 mmol/L (10-20); BUN (Urea Nitrogen) 60 mg/dL (9.8-20.1); Calc. Creatinine Clearance 0 mL/min (70-130); Calcium 8.6 mg/dL (7.8-10.44); Carbon Dioxide 20 mmol/L (22-29); Chloride 110 mmol/L (98-107); Estimated GFR-MDRD 27; Glucose 201 mg/dL (70-105); Potassium 4.3 mmol/L (3.5-5.1); Sodium 141 mmol/L (136-145)
[2019-10-30] MEDS: Senokot S 8.6-50 MG TAB PO SCH (23:54)
[2019-10-30] MEDS: Ascorbic Acid 500 mg Chewable Tablet PO SCH (23:54)
[2019-10-31] MEDS: Insulin Regular 300 UNITS/3 ML VIAL SC PRN ×3 (00:40→17:53)
[2019-10-31 01:16] VITALS: BMI 34.5
[2019-10-31] MEDS: Sodium Chloride 0.9% 1,000 ML IV SCH ×3 (01:58→12:23)
[2019-10-31] MEDS ORDERED: Lactated Ringer's 500 ML IV SCH (02:00)
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
[2019-10-31] MEDS: traMADol HCl 50 MG TAB PO PRN ×2 (04:27→17:51)
[2019-10-31] MEDS: Ondansetron PF 4 MG/2 ML Vial IVP PRN (04:28)
[2019-10-31 05:19] LABS: Hemoglobin 7.2 g/dL (12.0-16.0); Mean Corpuscular HGB CONC 32.3 g/dL (32.0-36.0); Mean Corpuscular Hemoglobin 29.1 pg (27.0-31.0); Mean Corpuscular Volume 90.1 fL (78.0-98.0); Mean Platelet Volume 8.2 fL (7.4-10.4); Platelet Count 164 thou/uL (130-400); RBC Distribution Width 14.7 % (11.5-14.5); Red Blood Cell (RBC) Count 2.47 mill/uL (4.20-5.40); White Blood Cell (WBC) Count 10.4 thou/uL (4.8-10.8)
[2019-10-31 05:53] LABS: Anion Gap 14 mmol/L (10-20); BUN (Urea Nitrogen) 62 mg/dL (9.8-20.1); Calc. Creatinine Clearance 48 mL/min (70-130); Calcium 8.3 mg/dL (7.8-10.44); Carbon Dioxide 22 mmol/L (22-29); Chloride 108 mmol/L (98-107); Estimated GFR-MDRD 24; Glucose 190 mg/dL (70-105); Magnesium 2.2 mg/dL (1.6-2.6); Phosphorus 6.2 mg/dL (2.3-4.7); Potassium 4.2 mmol/L (3.5-5.1); Sodium 140 mmol/L (136-145)
[2019-10-31] MEDS: Acetaminophen 500 MG TAB PO SCH ×4 (05:53→23:07)
[2019-10-31] MEDS: traMADol HCl 50 MG TAB PO SCH ×4 (05:53→23:08)
[2019-10-31] MEDS: metroNIDAZOLE 500 MG in Premix Bag 1 BAG IVPB SCH ×3 (05:54→21:35)
--- NOTE | 2019-10-31 08:02 | ULT ---
BILATERAL CAROTID DUPLEX ULTRASOUND: HISTORY: Syncope TECHNIQUE: Grayscale, color-flow and spectral Doppler ultrasound imaging of the extracranial carotid artery syst ems was performed bilaterally. FINDINGS: There is mild plaque formation on both sides. The left vertebral artery and the distal ICA not visual ized. The peak systolic velocity in the right ICA measures 56 cm/s with an end-diastolic velocity of 18 cm/ s and a systolic ratio of 0.51. The peak systolic velocity in the left ICA measures 52 cm/s with an end-diastolic velocity of 9 c m/s and a systolic ratio of 0.68. Flow in right vertebral artery remains antegrade. IMPRESSION: No evidence of hemodynamically significant stenosis in either ICA
[2019-10-31] MEDS: Polyethylene Glycol 3350 17 GM Packet PO SCH (09:28)
[2019-10-31] MEDS: Senokot S 8.6-50 MG TAB PO SCH ×2 (09:29→21:34)
[2019-10-31] MEDS: Ferrous Sulfate 325 MG TAB PO SCH ×2 (09:29→17:48)
[2019-10-31] MEDS: Ascorbic Acid 500 mg Chewable Tablet PO SCH ×2 (09:29→21:34)
[2019-10-31] MEDS: Scopolamine 1.5 mg/72 hour Patch TD SCH (12:15)
--- NOTE | 2019-10-31 13:01 | PRG ---
DATE OF SERVICE: 10/31/2019 SUBJECTIVE: Obese, female, resting comfortably in bed with her left leg elevated at the time of evaluation by the Multidisciplinary Trauma Team. The patient had no acute overnight events, but did continue to endorse moderate pain in her left leg. The patient was otherwise in no acute cardiopulmonary distress. OBJECTIVE: VITAL SIGNS: Reviewed and the patient was found to have a temperature of 97.9, pulse 88 beats per minute, respirations 16 per minute, oxygen saturation 98% on 2 L nasal cannula, blood pressure was found to be 126/64. GENERAL: Obese female, resting comfortably in bed with her left leg elevated and in no acute cardiopulmonary distress. HEENT: Normocephalic and atraumatic head, with eyes that demonstrated grossly normal vision. Pupils were equal, round, reactive to light and accommodation. Extraocular muscles were grossly intact. Nose revealed moist membranes without evidence of septal deviation. Mouth revealed poor dentition, moist membranes, and no pharyngeal erythema or posterior pharyngeal exudates. Face demonstrated mild hirsutism. Throat demonstrated full range of motion without tracheal deviation or cervical lymphadenopathy. RESPIRATORY: Clear lungs to auscultation bilaterally without wheezes, rales, or rhonchi. CARDIOVASCULAR: Regular rate and rhythm without murmurs, clicks, gallops, or rubs. GI: Protuberant abdomen with normoactive bowel sounds x4 and no tenderness to palpation. MUSCULOSKELETAL: The patient was able to move all four extremities equally and purposefully, although she did endorsed pain upon movement in her left lower extremity. She was able to wiggle all of her toes, however, and there did not appear to be any evidence of ischemia or gross drainage from surgical incision sites. The patient's lower extremity was wrapped in standard postoperative bandages and a splint. DIAGNOSTIC STUDIES: Pertinent images were reviewed the patient's comminuted patellar fracture of the left lower extremity as well as the patient's open trimalleolar fracture of the left lower extremity. ASSESSMENT AND PLAN: We will continue to control the patient's pain and consider augmenting current pain medication regimen as needed. The patient is currently on a consistent carbohydrate diet due to diabetes. We will restart diabetes medications to include Novolin 55 units b.i.d. with additional bedtime and sliding scale insulin on board. The patient has an adequate bowel regimen with MiraLAX and Senokot-S. We will monitor I's and O's carefully. Physical Therapy, Occupational Therapy, and Case Management consulted, recommendations appreciated. We will evaluate the patient's progress and begin discharge planning. This patient was seen and evaluated by Dr. Kevin Michelle, Trauma Services, during multidisciplinary morning rounds. He agrees with the aforementioned assessment. Job ID: [id number]
[2019-10-31] MEDS ORDERED: Furosemide 40 MG TAB PO SCH (14:00)
[2019-10-31] MEDS ORDERED: Rivaroxaban 10 MG TAB PO SCH (17:00)
[2019-10-31] MEDS: cefTRIAXone\\ROCEPHIN 2 GM in Sodium Chloride 0.9% 100 ML IVPB SCH (18:41)
[2019-10-31] MEDS ORDERED: Hydrocortisone Sod Succ/PF 100 mg/2 ml Vial IVP SCH (20:15)
[2019-10-31] MEDS ORDERED: INSULIN ASPART 55 UNIT SQ SCH (21:00)
[2019-10-31] MEDS ORDERED: Furosemide 20 MG TAB PO SCH (21:00)
[2019-10-31] MEDS ORDERED: cloNIDine 0.3 MG TAB PO SCH (21:00)
[2019-10-31] MEDS ORDERED: Carvedilol 25 MG TAB PO SCH ×2 (21:00)
[2019-10-31] MEDS ORDERED: HumaLOG 300 UNITS/3 ML VIAL SC SCH (21:00)
[2019-10-31] MEDS ORDERED: Non-Formulary Item 1 EACH (Rivaroxaban [Xarelto] 1 TAB) PO SCH (21:00)
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
[2019-11-01] MEDS: Hydrocortisone Sod Succ/PF 100 mg/2 ml Vial IVP SCH ×4 (03:27→20:27)
[2019-11-01] MEDS: Sodium Chloride 0.9% 1,000 ML IV SCH ×3 (03:29→18:40)
[2019-11-01] MEDS: Acetaminophen 500 MG TAB PO SCH ×4 (05:40→23:06)
[2019-11-01] MEDS: traMADol HCl 50 MG TAB PO SCH ×4 (05:41→23:06)
[2019-11-01] MEDS: metroNIDAZOLE 500 MG in Premix Bag 1 BAG IVPB SCH ×3 (05:42→21:14)
[2019-11-01] MEDS: traMADol HCl 50 MG TAB PO PRN (06:19)
[2019-11-01 06:44] LABS: Hemoglobin 6.9 g/dL (12.0-16.0); Mean Corpuscular HGB CONC 33.3 g/dL (32.0-36.0); Mean Corpuscular Hemoglobin 30.6 pg (27.0-31.0); Mean Platelet Volume 7.9 fL (7.4-10.4); Platelet Count 128 thou/uL (130-400); RBC Distribution Width 14.2 % (11.5-14.5); Red Blood Cell (RBC) Count 2.24 mill/uL (4.20-5.40)
[2019-11-01 07:07] LABS: Anion Gap 17 mmol/L (10-20); BUN (Urea Nitrogen) 66 mg/dL (9.8-20.1); Calc. Creatinine Clearance 40 mL/min (70-130); Calcium 8.3 mg/dL (7.8-10.44); Carbon Dioxide 18 mmol/L (22-29); Chloride 105 mmol/L (98-107); Estimated GFR-MDRD 19; Glucose 167 mg/dL (70-105); Magnesium 2.3 mg/dL (1.6-2.6); Potassium 4.4 mmol/L (3.5-5.1); Sodium 136 mmol/L (136-145)
[2019-11-01] MEDS ORDERED: Aspirin Chewable 81 MG TAB PO SCH ×2 (09:00)
[2019-11-01] MEDS: Ascorbic Acid 500 mg Chewable Tablet PO SCH ×2 (09:00→20:26)
[2019-11-01] MEDS: Ferrous Sulfate 325 MG TAB PO SCH ×2 (09:00→16:28)
[2019-11-01] MEDS ORDERED: Allopurinol 300 MG TAB PO SCH (09:00)
[2019-11-01] MEDS: Senokot S 8.6-50 MG TAB PO SCH ×2 (09:01→20:26)
[2019-11-01] MEDS: Polyethylene Glycol 3350 17 GM Packet PO SCH (09:01)
[2019-11-01] MEDS: Allopurinol 100 MG TAB PO SCH (09:01)
[2019-11-01] MEDS ORDERED: Ondansetron HCl/PF 4 MG/2 ML Vial IVP PRN (10:27)
[2019-11-01] MEDS ORDERED: Neomycin-Polymyxin 1 ML AMP ONE (10:56)
[2019-11-01] MEDS ORDERED: Fentanyl 100 MCG/2 ML VIAL ONE (11:07)
[2019-11-01] MEDS ORDERED: Midazolam HCl 2 mg/2 ml Vial ONE (11:07)
[2019-11-01] MEDS ORDERED: Lidocaine 2% Jelly 5 ML TUBE ONE (11:07)
[2019-11-01] MEDS ORDERED: Lidocaine 1% PF 5 ML VIAL ONE (12:22)
[2019-11-01] MEDS ORDERED: PROPOFOL 200 MG/20 ML VIAL ONE (12:22)
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
[2019-11-01 13:30] LABS: SARS-CoV-2 MS2 Positive; SARS-CoV-2 N Gene Negative; SARS-CoV-2 S Gene Negative; SARS-CoV-2 orf1ab Negative
[2019-11-01] MEDS ORDERED: HYDROcodone/Acetaminophen 10/325 mg Tablet PO PRN ×2 (14:25)
[2019-11-01] MEDS: cefTRIAXone\\ROCEPHIN 2 GM in Sodium Chloride 0.9% 100 ML IVPB SCH (16:29)
[2019-11-01] MEDS: hydrALAZINE 20 MG/ML VIAL SLOW IVP PRN (18:03)
--- NOTE | 2019-11-01 18:18 | RAD ---
LEFT ANKLE THREE VIEWS: 11/01/19 HISTORY: External fixator left ankle and internal fixation. COMPARISON: 10/30/19. FINDINGS: Placement of an external fixator left ankle. In addition, there are internal fixation screws stabili zing the medial malleolus and posterior malleolus with a markedly comminuted distal fibular fracture. IMPRESSION: Intraoperative external fixation left ankle with image documentation. Internal fixation screws stabil izing the medial and posterior malleolus. POS: RRE
[2019-11-01] MEDS: Cyclobenzaprine 10 MG TAB PO PRN (20:26)
[2019-11-01] MEDS: Insulin Regular 300 UNITS/3 ML VIAL SC PRN (20:29)
[2019-11-01] MEDS ORDERED: Acetaminophen/Codeine 30-300mg Tablet PO PRN (23:57)
[2019-11-02] MEDS: Acetaminophen/Codeine 30-300mg Tablet PO PRN ×3 (00:11→20:59)
[2019-11-02] MEDS: Acetaminophen 325 MG TAB PO SCH ×5 (00:12→23:39)
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
[2019-11-02] MEDS: Sodium Chloride 0.9% 1,000 ML IV SCH ×2 (03:22→12:51)
[2019-11-02] MEDS: Insulin Regular 300 UNITS/3 ML VIAL SC PRN ×4 (05:34→20:45)
[2019-11-02] MEDS: metroNIDAZOLE 500 MG in Premix Bag 1 BAG IVPB SCH ×3 (05:34→20:49)
[2019-11-02 05:59] LABS: Hemoglobin 7.8 g/dL (12.0-16.0); Mean Corpuscular HGB CONC 33.2 g/dL (32.0-36.0); Mean Corpuscular Hemoglobin 29.8 pg (27.0-31.0); Mean Corpuscular Volume 89.8 fL (78.0-98.0); Mean Platelet Volume 8.1 fL (7.4-10.4); Platelet Count 137 thou/uL (130-400); RBC Distribution Width 14.5 % (11.5-14.5); Red Blood Cell (RBC) Count 2.61 mill/uL (4.20-5.40); White Blood Cell (WBC) Count 7.8 thou/uL (4.8-10.8)
[2019-11-02 06:16] LABS: Anion Gap 15 mmol/L (10-20); BUN (Urea Nitrogen) 63 mg/dL (9.8-20.1); Calc. Creatinine Clearance 47 mL/min (70-130); Calcium 8.1 mg/dL (7.8-10.44); Carbon Dioxide 20 mmol/L (22-29); Chloride 106 mmol/L (98-107); Estimated GFR-MDRD 23; Glucose 150 mg/dL (70-105); Magnesium 2.4 mg/dL (1.6-2.6); Phosphorus 5.6 mg/dL (2.3-4.7); Potassium 3.7 mmol/L (3.5-5.1); Sodium 137 mmol/L (136-145)
[2019-11-02] MEDS: Polyethylene Glycol 3350 17 GM Packet PO SCH (09:15)
[2019-11-02] MEDS: Ferrous Sulfate 325 MG TAB PO SCH ×2 (09:15→17:16)
[2019-11-02] MEDS: Allopurinol 100 MG TAB PO SCH (09:16)
[2019-11-02] MEDS: Senokot S 8.6-50 MG TAB PO SCH ×2 (09:16→20:45)
[2019-11-02] MEDS: Ascorbic Acid 500 mg Chewable Tablet PO SCH ×2 (09:16→20:45)
[2019-11-02] MEDS: Doxycycline 100 MG CAP PO SCH ×2 (09:16→20:45)
[2019-11-02] MEDS: Carvedilol 25 MG TAB PO SCH ×2 (09:16→20:45)
[2019-11-02] MEDS: cefTRIAXone\\ROCEPHIN 2 GM in Sodium Chloride 0.9% 100 ML IVPB SCH (17:16)
[2019-11-02] MEDS: Cyclobenzaprine 10 MG TAB PO PRN (18:34)
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
[2019-11-03] MEDS: Acetaminophen 325 MG TAB PO SCH ×4 (05:27→23:10)
[2019-11-03] MEDS: Cyclobenzaprine 10 MG TAB PO PRN (05:27)
[2019-11-03] MEDS: metroNIDAZOLE 500 MG in Premix Bag 1 BAG IVPB SCH ×3 (05:27→22:58)
[2019-11-03 05:41] LABS: Hemoglobin 7.9 g/dL (12.0-16.0); Mean Corpuscular HGB CONC 33.2 g/dL (32.0-36.0); Mean Corpuscular Hemoglobin 30.6 pg (27.0-31.0); Mean Platelet Volume 7.8 fL (7.4-10.4); Platelet Count 149 thou/uL (130-400); RBC Distribution Width 14.6 % (11.5-14.5); Red Blood Cell (RBC) Count 2.57 mill/uL (4.20-5.40)
[2019-11-03 06:02] LABS: Anion Gap 14 mmol/L (10-20); BUN (Urea Nitrogen) 57 mg/dL (9.8-20.1); Calc. Creatinine Clearance 55 mL/min (70-130); Calcium 8.3 mg/dL (7.8-10.44); Carbon Dioxide 20 mmol/L (22-29); Chloride 108 mmol/L (98-107); Estimated GFR-MDRD 27; Glucose 222 mg/dL (70-105); Magnesium 2.5 mg/dL (1.6-2.6); Phosphorus 4.8 mg/dL (2.3-4.7); Potassium 3.4 mmol/L (3.5-5.1); Sodium 139 mmol/L (136-145)
[2019-11-03] MEDS: Insulin Regular 300 UNITS/3 ML VIAL SC PRN ×4 (06:05→20:27)
[2019-11-03] MEDS: Senokot S 8.6-50 MG TAB PO SCH ×2 (09:57→20:26)
[2019-11-03] MEDS: cloNIDine 0.3 MG TAB PO SCH ×2 (09:57→20:25)
[2019-11-03] MEDS: Ascorbic Acid 500 mg Chewable Tablet PO SCH ×2 (09:57→20:26)
[2019-11-03] MEDS: Doxycycline 100 MG CAP PO SCH ×2 (09:57→20:26)
[2019-11-03] MEDS: Carvedilol 25 MG TAB PO SCH ×2 (09:57→20:26)
[2019-11-03] MEDS: Allopurinol 100 MG TAB PO SCH (09:57)
[2019-11-03] MEDS: Ferrous Sulfate 325 MG TAB PO SCH ×2 (09:58→16:29)
[2019-11-03] MEDS: Polyethylene Glycol 3350 17 GM Packet PO SCH (09:58)
[2019-11-03] MEDS: Scopolamine 1.5 mg/72 hour Patch TD SCH (11:29)
[2019-11-03] MEDS: Acetaminophen/Codeine 30-300mg Tablet PO PRN ×2 (11:30→23:02)
[2019-11-03] MEDS ORDERED: Potassium Chloride 40 MEQ in Sodium Chloride 0.9% 250 ML 250 ML IVPB SCH (14:00)
[2019-11-03] MEDS ORDERED: Potassium Chloride 40 MEQ in Premix Bag 1 BAG IVPB SCH (14:00)
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
[2019-11-03] MEDS: cefTRIAXone\\ROCEPHIN 2 GM in Sodium Chloride 0.9% 100 ML IVPB SCH (15:19)
[2019-11-03] MEDS: Rivaroxaban 10 MG TAB PO SCH (16:29)
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
[2019-11-04] MEDS: Acetaminophen 325 MG TAB PO SCH ×3 (05:42→17:40)
[2019-11-04] MEDS: Insulin Regular 300 UNITS/3 ML VIAL SC PRN ×4 (05:49→20:17)
[2019-11-04 06:03] LABS: Hemoglobin 7.7 g/dL (12.0-16.0); Mean Corpuscular HGB CONC 30.6 g/dL (32.0-36.0); Mean Corpuscular Hemoglobin 29.2 pg (27.0-31.0); Mean Corpuscular Volume 95.3 fL (78.0-98.0); Mean Platelet Volume 7.9 fL (7.4-10.4); Platelet Count 162 thou/uL (130-400); RBC Distribution Width 15.1 % (11.5-14.5); Red Blood Cell (RBC) Count 2.62 mill/uL (4.20-5.40); White Blood Cell (WBC) Count 8.7 thou/uL (4.8-10.8)
[2019-11-04 06:21] LABS: Anion Gap 13 mmol/L (10-20); BUN (Urea Nitrogen) 50 mg/dL (9.8-20.1); Calc. Creatinine Clearance 58 mL/min (70-130); Calcium 8.2 mg/dL (7.8-10.44); Carbon Dioxide 19 mmol/L (22-29); Chloride 109 mmol/L (98-107); Estimated GFR-MDRD 30; Glucose 210 mg/dL (70-105); Magnesium 2.5 mg/dL (1.6-2.6); Phosphorus 3.4 mg/dL (2.3-4.7); Potassium 3.9 mmol/L (3.5-5.1); Sodium 137 mmol/L (136-145)
[2019-11-04] MEDS: Doxycycline 100 MG CAP PO SCH ×2 (08:47→20:11)
[2019-11-04] MEDS: Senokot S 8.6-50 MG TAB PO SCH ×2 (08:47→20:05)
[2019-11-04] MEDS: cloNIDine 0.3 MG TAB PO SCH ×2 (08:47→20:06)
[2019-11-04] MEDS: Ferrous Sulfate 325 MG TAB PO SCH ×2 (08:47→17:39)
[2019-11-04] MEDS: Polyethylene Glycol 3350 17 GM Packet PO SCH (08:47)
[2019-11-04] MEDS: Ascorbic Acid 500 mg Chewable Tablet PO SCH ×2 (08:48→20:08)
[2019-11-04] MEDS: Allopurinol 100 MG TAB PO SCH (08:48)
[2019-11-04] MEDS: Carvedilol 25 MG TAB PO SCH ×2 (08:48→20:08)
[2019-11-04] MEDS: Acetaminophen/Codeine 30-300mg Tablet PO PRN ×2 (08:58→20:07)
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
[2019-11-04] MEDS: Rivaroxaban 10 MG TAB PO SCH (17:39)
[2019-11-05] MEDS: Acetaminophen 325 MG TAB PO SCH ×4 (01:16→17:06)
[2019-11-05] MEDS: Insulin Regular 300 UNITS/3 ML VIAL SC PRN ×4 (05:22→19:59)
[2019-11-05] MEDS: Senokot S 8.6-50 MG TAB PO SCH ×2 (08:11→19:58)
[2019-11-05] MEDS: Ferrous Sulfate 325 MG TAB PO SCH ×2 (08:11→17:06)
[2019-11-05] MEDS: Polyethylene Glycol 3350 17 GM Packet PO SCH (08:11)
[2019-11-05] MEDS: Ascorbic Acid 500 mg Chewable Tablet PO SCH ×2 (08:12→19:58)
[2019-11-05] MEDS: Carvedilol 25 MG TAB PO SCH ×2 (08:12→19:58)
[2019-11-05] MEDS: Allopurinol 100 MG TAB PO SCH (08:12)
[2019-11-05] MEDS: cloNIDine 0.3 MG TAB PO SCH ×2 (08:12→19:58)
[2019-11-05] MEDS: Doxycycline 100 MG CAP PO SCH ×2 (08:12→19:57)
[2019-11-05] MEDS: Acetaminophen/Codeine 30-300mg Tablet PO PRN (11:21)
[2019-11-05] MEDS: hydrALAZINE 20 MG/ML VIAL SLOW IVP PRN (15:52)
[2019-11-05] MEDS: Rivaroxaban 10 MG TAB PO SCH (17:06)
[2019-11-06] MEDS: Acetaminophen 325 MG TAB PO SCH ×4 (01:51→17:54)
[2019-11-06] MEDS: Insulin Regular 300 UNITS/3 ML VIAL SC PRN ×4 (05:46→20:55)
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
[2019-11-06] MEDS: Bisacodyl 10 MG SUPP PR SCH (09:00)
[2019-11-06] MEDS: Ascorbic Acid 500 mg Chewable Tablet PO SCH ×2 (09:00→19:51)
[2019-11-06] MEDS: Ferrous Sulfate 325 MG TAB PO SCH ×2 (09:00→17:54)
[2019-11-06] MEDS: Carvedilol 25 MG TAB PO SCH ×2 (09:00→19:51)
[2019-11-06] MEDS: cloNIDine 0.3 MG TAB PO SCH ×2 (09:00→19:51)
[2019-11-06] MEDS: Allopurinol 100 MG TAB PO SCH (09:00)
[2019-11-06] MEDS: Senokot S 8.6-50 MG TAB PO SCH ×2 (09:08→19:51)
[2019-11-06] MEDS: Polyethylene Glycol 3350 17 GM Packet PO SCH (09:09)
[2019-11-06] MEDS: Doxycycline 100 MG CAP PO SCH ×2 (09:10→19:51)
--- NOTE | 2019-11-06 09:11 | PRG ---
DATE OF SERVICE: 11/06/2019 SUBJECTIVE: Carey is a 59-year-old female who is now postop day 6 from a percutaneous screw fixation external fixation treatment of an open left ankle highly comminuted fracture. She is doing relatively well. The VAC is still functioning. No evidence of infection so far. OBJECTIVE: VITAL SIGNS: Temperature 97.8, pulse 70, respiratory rate 18, blood pressure 143/72. GENERAL: She is alert, oriented, responsive, and appropriate to the examiner. Pleasant. Feeling better today. EXTREMITIES: She is neurovascularly intact in the left lower extremity and full digital excursion observed. There is no purulence or drainage noted. LABORATORY DATA: Hemoglobin and hematocrit 7.7 and 25. IMPRESSION: A 59-year-old female postop day 6, external fixation, percutaneous screw fixation, left, highly comminuted open ankle fracture. PLAN: Continue current care. Stable for transfer from orthopedic standpoint. We will follow up in clinic in 8 to 10 days from discharge. Continue wound VAC and suppressive antibiotics. Job ID: [id number]
[2019-11-06] MEDS: Scopolamine 1.5 mg/72 hour Patch TD SCH (12:13)
[2019-11-06] MEDS: Ondansetron PF 4 MG/2 ML Vial IVP PRN (14:58)
[2019-11-06] MEDS: Rivaroxaban 10 MG TAB PO SCH (17:54)
[2019-11-06] MEDS: HumuLIN 70/30 (300 UNITS/3 ML VIAL) SC SCH (17:54)
[2019-11-07] MEDS: Acetaminophen 325 MG TAB PO SCH ×5 (00:20→23:52)
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
[2019-11-07] MEDS: HumuLIN 70/30 (300 UNITS/3 ML VIAL) SC SCH ×2 (06:22→18:35)
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
[2019-11-07] MEDS: Ascorbic Acid 500 mg Chewable Tablet PO SCH ×2 (08:43→21:26)
[2019-11-07] MEDS: Senokot S 8.6-50 MG TAB PO SCH ×2 (08:43→21:25)
[2019-11-07] MEDS: Carvedilol 25 MG TAB PO SCH ×2 (08:43→21:26)
[2019-11-07] MEDS: Allopurinol 100 MG TAB PO SCH (08:43)
[2019-11-07] MEDS: Ferrous Sulfate 325 MG TAB PO SCH ×2 (08:43→18:36)
[2019-11-07] MEDS: cloNIDine 0.3 MG TAB PO SCH ×2 (08:43→21:26)
[2019-11-07] MEDS: Doxycycline 100 MG CAP PO SCH ×2 (08:47→21:25)
[2019-11-07] MEDS: Acetaminophen/Codeine 30-300mg Tablet PO PRN (08:47)
[2019-11-07] MEDS: Polyethylene Glycol 3350 17 GM Packet PO SCH (08:49)
[2019-11-07] MEDS: Bisacodyl 10 MG SUPP PR SCH (08:50)
[2019-11-07] MEDS: Rivaroxaban 10 MG TAB PO SCH (18:35)
[2019-11-07] MEDS ORDERED: Insulin Glargine 10 UNITS in Pre-Filled Syringe 1 EACH SC SCH (21:00)
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
[2019-11-08] MEDS: Acetaminophen 325 MG TAB PO SCH ×3 (06:40→18:19)
[2019-11-08] MEDS: HumuLIN 70/30 (300 UNITS/3 ML VIAL) SC SCH ×2 (06:41→18:20)
[2019-11-08 07:16] LABS: Hemoglobin 8.2 g/dL (12.0-16.0); Platelet Count 224 thou/uL (130-400)
[2019-11-08] MEDS: Ascorbic Acid 500 mg Chewable Tablet PO SCH ×2 (08:53→19:31)
[2019-11-08] MEDS: Doxycycline 100 MG CAP PO SCH ×2 (08:53→19:30)
[2019-11-08] MEDS: Ferrous Sulfate 325 MG TAB PO SCH ×2 (08:53→18:19)
[2019-11-08] MEDS: Carvedilol 25 MG TAB PO SCH ×2 (08:53→19:31)
[2019-11-08] MEDS: Senokot S 8.6-50 MG TAB PO SCH ×2 (08:53→19:30)
[2019-11-08] MEDS: cloNIDine 0.3 MG TAB PO SCH ×2 (08:54→19:31)
[2019-11-08] MEDS: Polyethylene Glycol 3350 17 GM Packet PO SCH (08:54)
[2019-11-08] MEDS: Allopurinol 100 MG TAB PO SCH (08:54)
[2019-11-08] MEDS: Bisacodyl 10 MG SUPP PR SCH (09:00)
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
[2019-11-08] MEDS: Rivaroxaban 10 MG TAB PO SCH (18:19)
[2019-11-08 19:17] VITALS: BP 177/79; TEMP 98.7
[2019-11-08] MEDS: Cyclobenzaprine 10 MG TAB PO PRN (19:30)
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
== END 2019-11-08 20:42 | DRG 493 ==
LOC: ERS 13:23 → SDC/OP 18:38 → SURG A 22:41
PROVIDERS: ADMIT Surgery; ATTEND Surgery
PROC: 0QSH04Z Reposition Left Tibia with Internal Fixation Device, Open Approach (ICD-10-PCS; principal; 2019-10-30)
PROC: 0LBT0ZZ Excision of Left Ankle Tendon, Open Approach (ICD-10-PCS; 2019-10-30)
PROC: 30233N1 Transfusion of Nonautologous Red Blood Cells into Peripheral Vein, Percutaneous Approach (ICD-10-PCS; 2019-10-31)
PROC: 0QSH05Z Reposition Left Tibia with External Fixation Device, Open Approach (ICD-10-PCS; 2019-11-01)
PROC: 0SPG04Z Removal of Internal Fixation Device from Left Ankle Joint, Open Approach (ICD-10-PCS; 2019-11-01)
DX: S82.851C Displaced trimalleolar fracture of right lower leg, initial encounter for open fracture type IIIA, IIIB, or IIIC (principal); S22.41XA Multiple fractures of ribs, right side, initial encounter for closed fracture; S82.002A Unspecified fracture of left patella, initial encounter for closed fracture; N17.9 Acute kidney failure, unspecified; D62 Acute posthemorrhagic anemia; E27.40 Unspecified adrenocortical insufficiency; K56.7 Ileus, unspecified; S96.992A Other specified injury of unspecified muscle and tendon at ankle and foot level, left foot, initial encounter; E11.40 Type 2 diabetes mellitus with diabetic neuropathy, unspecified; E11.51 Type 2 diabetes mellitus with diabetic peripheral angiopathy without gangrene; M19.90 Unspecified osteoarthritis, unspecified site; E78.5 Hyperlipidemia, unspecified; E78.00 Pure hypercholesterolemia, unspecified; M10.9 Gout, unspecified; N18.3 Chronic kidney disease, stage 3 (moderate); D63.1 Anemia in chronic kidney disease; I12.9 Hypertensive chronic kidney disease with stage 1 through stage 4 chronic kidney disease, or unspecified chronic kidney disease; E11.22 Type 2 diabetes mellitus with diabetic chronic kidney disease; E27.9 Disorder of adrenal gland, unspecified; Z11.59 Encounter for screening for other viral diseases; S10.83XA Contusion of other specified part of neck, initial encounter; E66.9 Obesity, unspecified; E87.6 Hypokalemia; I95.2 Hypotension due to drugs; T40.2X5A Adverse effect of other opioids, initial encounter; R33.8 Other retention of urine; V49.9XXA Car occupant (driver) (passenger) injured in unspecified traffic accident, initial encounter; Z88.8 Allergy status to other drugs, medicaments and biological substances; Z79.4 Long term (current) use of insulin; Z79.899 Other long term (current) drug therapy; Z68.34 Body mass index [BMI] 34.0-34.9, adult; Z86.718 Personal history of other venous thrombosis and embolism
CPT/HCPCS: 36415; 36416; 36430; 70450; 71045; 71260; 72125; 74177; 76000; 80048; 80053; 82533; 83735; 84100; 84146; 85014; 85018; 85025; 85027; 85049; 85610; 85730; 86850; 86900; 86901; 87635; 90471; 90715; 93005; 93306; 93880; 96361; 96365; 96367; 96375; 96376; C1713; G0390; J0360; J0690; J0696; J1720; J1815; J1885; J2250; J2270; J2405; J2550; J2704; J3010; J3480; J3490; J7050; P9016; Q9967; S0020; S0028; U0003

== ENCOUNTER 2019-12-13 10:21 | Outpatient (CLI) | payer OTHER ==
[2019-12-13 14:32] LABS: #Eosinphils 0.4 thou/uL (0.0-0.7); #Lymphocytes 1.2 thou/uL (1.20-3.40); #Monocytes 0.4 thou/uL (0.11-0.59); #Neutrophils 7.9 thou/uL (1.40-6.50); %Basophils 0.4 % (0.0-1.0); %Eosinophils 4.2 % (0.0-10.0); %Lymphocytes 12.1 % (21.0-51.0); %Monocytes 4.3 % (0.0-10.0); %Neutrophils 79.1 % (42.0-75.0); Hemoglobin 8.9 g/dL (12.0-16.0); Mean Corpuscular HGB CONC 32.1 g/dL (32.0-36.0); Mean Corpuscular Volume 87.2 fL (78.0-98.0); Platelet Count 244 thou/uL (130-400); RBC Distribution Width 14.6 % (11.5-14.5); Red Blood Cell (RBC) Count 3.16 mill/uL (4.20-5.40)
[2019-12-13 15:06] LABS: Anion Gap 13 mmol/L (10-20); BUN (Urea Nitrogen) 38 mg/dL (9.8-20.1); Calc. Creatinine Clearance 0 mL/min (70-130); Calcium 8.8 mg/dL (7.8-10.44); Carbon Dioxide 26 mmol/L (22-29); Chloride 106 mmol/L (98-107); Estimated GFR-MDRD 35; Glucose 125 mg/dL (70-105); Potassium 4.2 mmol/L (3.5-5.1); Sodium 141 mmol/L (136-145)
[2019-12-14 13:45] LABS: SARS-CoV-2 MS2 Positive; SARS-CoV-2 N Gene Negative; SARS-CoV-2 S Gene Negative; SARS-CoV-2 by NAA Not Detected (NotDetected); SARS-CoV-2 orf1ab Negative
== END 2019-12-13 10:22 | disposition home or self-care (01) ==
LOC: LABBT 10:21
PROVIDERS: ATTEND Orthopaedic Surgery
DX: Z01.812 Encounter for preprocedural laboratory examination (principal); Z20.828 Contact with and (suspected) exposure to other viral communicable diseases; S82.892A Other fracture of left lower leg, initial encounter for closed fracture
CPT/HCPCS: 80048; 85025; 87635; U0003

== ENCOUNTER 2019-12-17 10:21 | Inpatient (IN) | payer OTHER ==
[2019-12-14 10:41] VITALS: BMI 34.5
[2019-12-17] MEDS ORDERED: Clindamycin/D5W 900 mg/50 ml Premix Bag ONE (11:09)
[2019-12-17] MEDS ORDERED: Levofloxacin 500 mg/D5W 100 ml Premix Bag ONE (11:09)
[2019-12-17] MEDS ORDERED: Lidocaine 1% PF 5 ML VIAL ONE (11:41)
[2019-12-17] MEDS ORDERED: PHENYLEPHRINE-NS 100 MCG/ML 10 ML SYRINGE ONE (11:41)
[2019-12-17] MEDS ORDERED: PROPOFOL 200 MG/20 ML VIAL ONE (11:41)
[2019-12-17] MEDS ORDERED: Ondansetron PF 4 MG/2 ML Vial ONE (11:41)
[2019-12-17] MEDS ORDERED: Fentanyl 100 MCG/2 ML VIAL ONE ×2 (11:56→12:45)
[2019-12-17] MEDS ORDERED: Neomycin-Polymyxin 1 ML AMP ONE (13:22)
[2019-12-17] MEDS ORDERED: Acetaminophen/Codeine 30-300mg Tablet PO PRN ×2 (14:16)
[2019-12-17] MEDS ORDERED: Promethazine HCl 25 MG/ML VIAL IM PRN ×2 (14:16→14:51)
[2019-12-17] MEDS ORDERED: Fentanyl 100 MCG/2 ML VIAL SLOW IVP PRN (14:16)
[2019-12-17] MEDS ORDERED: Bisacodyl 10 MG SUPP PR PRN (14:16)
[2019-12-17] MEDS ORDERED: traMADol HCl 50 MG TAB PO PRN ×2 (14:16)
[2019-12-17] MEDS ORDERED: Milk Of Magnesia 30 ML UDCUP PO PRN (14:16)
[2019-12-17] MEDS ORDERED: Acetaminophen 325 MG TAB PO PRN (14:16)
[2019-12-17] MEDS ORDERED: Communication Order-Pharmacy FS SCH (14:30)
[2019-12-17] MEDS ORDERED: Promethazine HCl 25 MG/ML VIAL SLOW IVP PRN (14:51)
[2019-12-17] MEDS ORDERED: Ondansetron HCl/PF 4 MG/2 ML Vial IVP PRN (14:51)
[2019-12-17] MEDS ORDERED: Vancomycin 1.5 GRAM/300 ML BAG 1.5 GM in Premix Bag 1 BAG IVPB SCH (15:00)
[2019-12-17] MEDS: Ketorolac Tromethamine 30 MG/ML VIAL IVP SCH (17:16)
[2019-12-17] MEDS: Piperacillin/Tazobactam 3.375 GM in Sodium Chloride 0.9% 100 ML IVPB SCH (17:17)
[2019-12-17] MEDS: Lactated Ringer's 1,000 ML IV SCH (17:34)
[2019-12-17] MEDS: Vancomycin 1.5 GRAM/300 ML BAG 1.5 GM in Premix Bag 1 BAG IVPB SCH (18:42)
--- NOTE | 2019-12-17 20:10 | RAD ---
INTRAOPERATIVE FLUOROSCOPY: History: Left ankle hardware Exposure: 39.6 seconds, 1.71 mGy*cm^2 FINDINGS: Single fluoroscopic view demonstrates hardware projecting over the distal tibia and calcaneus. POS: OFF
[2019-12-17] MEDS: Aspirin 81 mg Enteric Coated Tablet PO SCH (20:40)
[2019-12-17] MEDS: Ondansetron PF 4 MG/2 ML Vial IV PRN (22:14)
[2019-12-18] MEDS: Ketorolac Tromethamine 30 MG/ML VIAL IVP SCH ×4 (00:21→18:16)
[2019-12-18] MEDS: Piperacillin/Tazobactam 3.375 GM in Sodium Chloride 0.9% 100 ML IVPB SCH ×5 (00:21→23:18)
[2019-12-18 05:05] LABS: #Eosinphils 0.3 thou/uL (0.0-0.7); #Lymphocytes 1.2 thou/uL (1.20-3.40); #Monocytes 0.5 thou/uL (0.11-0.59); #Neutrophils 5.8 thou/uL (1.40-6.50); %Eosinophils 3.3 % (0.0-10.0); %Lymphocytes 15.6 % (21.0-51.0); %Monocytes 6.5 % (0.0-10.0); %Neutrophils 74.6 % (42.0-75.0); Mean Corpuscular HGB CONC 31.4 g/dL (32.0-36.0); Mean Corpuscular Hemoglobin 27.5 pg (27.0-31.0); Mean Corpuscular Volume 87.5 fL (78.0-98.0); Mean Platelet Volume 7.5 fL (7.4-10.4); Platelet Count 190 thou/uL (130-400); RBC Distribution Width 14.8 % (11.5-14.5); Red Blood Cell (RBC) Count 2.56 mill/uL (4.20-5.40); White Blood Cell (WBC) Count 7.7 thou/uL (4.8-10.8)
[2019-12-18 05:32] LABS: ALT (SGPT) Less than 7 U/L (8-55); AST (SGOT) 7 U/L (5-34); Albumin 2.9 g/dL (3.5-5.0); Alkaline Phosphatase 138 U/L (40-110); Anion Gap 13 mmol/L (10-20); BUN (Urea Nitrogen) 34 mg/dL (9.8-20.1); Bilirubin, Total 0.3 mg/dL (0.2-1.2); CRP (Inflammatory) 2.24 mg/dL (= or < 0.5); Calc. Creatinine Clearance 57 mL/min (70-130); Calcium 8.4 mg/dL (7.8-10.44); Carbon Dioxide 23 mmol/L (22-29); Chloride 108 mmol/L (98-107); Estimated GFR-MDRD 29; Globulin 2.2 g/dL (2.4-3.5); Glucose 147 mg/dL (70-105); Potassium 4.7 mmol/L (3.5-5.1); Protein, Total 5.1 g/dL (6.0-8.3); Sodium 139 mmol/L (136-145)
[2019-12-18] MEDS: Vancomycin 1.5 GRAM/300 ML BAG 1.5 GM in Premix Bag 1 BAG IVPB SCH ×2 (05:59→18:17)
[2019-12-18] MEDS: Lactated Ringer's 1,000 ML IV SCH ×2 (06:04→18:45)
[2019-12-18] MEDS: Aspirin 81 mg Enteric Coated Tablet PO SCH ×2 (08:15→19:45)
[2019-12-18] MEDS: Ondansetron PF 4 MG/2 ML Vial IV PRN (13:18)
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
[2019-12-18] MEDS: cloNIDine 0.3 MG TAB PO SCH (20:52)
[2019-12-18] MEDS: Atorvastatin Calcium 40 MG TAB PO SCH (20:53)
[2019-12-18] MEDS: HumuLIN 70/30 (300 UNITS/3 ML VIAL) SC SCH (20:53)
[2019-12-18] MEDS: Ascorbic Acid 500 mg Chewable Tablet PO SCH (20:53)
[2019-12-18] MEDS: Carvedilol 25 MG TAB PO SCH (20:53)
[2019-12-18] MEDS ORDERED: Rivaroxaban 10 MG TAB PO SCH (21:00)
[2019-12-19] MEDS ORDERED: Piperacillin/Tazobactam 3.375 GM VIAL ONE (05:13)
[2019-12-19] MEDS: Piperacillin/Tazobactam 3.375 GM in Sodium Chloride 0.9% 100 ML IVPB SCH ×3 (05:36→18:07)
[2019-12-19] MEDS: Vancomycin 1.5 GRAM/300 ML BAG 1.5 GM in Premix Bag 1 BAG IVPB SCH ×2 (05:40→19:04)
[2019-12-19] MEDS: Ascorbic Acid 500 mg Chewable Tablet PO SCH ×2 (08:11→20:26)
[2019-12-19] MEDS: Furosemide 40 MG TAB PO SCH ×2 (08:11→15:31)
[2019-12-19] MEDS: Carvedilol 25 MG TAB PO SCH ×2 (08:12→20:26)
[2019-12-19] MEDS: cloNIDine 0.3 MG TAB PO SCH ×2 (08:12→20:25)
[2019-12-19] MEDS: Aspirin 81 mg Enteric Coated Tablet PO SCH ×2 (08:12→20:26)
[2019-12-19] MEDS: HumuLIN 70/30 (300 UNITS/3 ML VIAL) SC SCH ×2 (08:24→20:30)
--- NOTE | 2019-12-19 08:26 | PRG ---
DATE OF SERVICE: 12/19/2019 SUBJECTIVE: Patient is postop day #2 from external fixator takedown for left pilon fracture with percutaneous pin stabilization and irrigation and debridement of multiple wounds. The patient had a wound VAC applied. She is currently resting in her bed at this time. No complaints. Wound care has been seeing her. She is tolerating a diet. OBJECTIVE: VITAL SIGNS: Include temperature of 98, pulse of 73, respiratory rate of 18, blood pressure of 158/74. GENERAL: The patient is awake and alert. She is in no apparent distress. EXTREMITIES: Evaluation of her left lower extremity shows a short-leg splint intact. There is a wound VAC intact with good suction. There is scant drainage in the reservoir. She is able to move digits. Capillary refill 3 seconds. LABORATORY DATA: Laboratory data from yesterday, 12/18/2019, shows a hemoglobin of 7, hematocrit 22.4, platelet count of 190. ASSESSMENT AND PLAN: Status post external fixator takedown secondary to patient walking on this device. She now has percutaneous pin stabilization with a wound VAC due to multiple wounds on the left ankle and heel. She is at high risk for possible amputation in the future. We have had a long discussion with her today at bedside, Dr. Mendez as well as myself. She verbalizes understanding of this. She will have to be diligent about her wound care. Regarding her Xarelto use, patient states that she has been on Xarelto for 5 to 6 years and previous to that she was on another anticoagulant after a DVT in her left lower extremity following a back surgery approximately 15 years ago. She is currently on aspirin b.i.d. and we will consult the Medicine team to evaluate for their input on restarting the Xarelto versus continuing aspirin b.i.d. given her wound VAC and her low H and H. It appears that she trends in the 7s up to 8 on her hemoglobin. We appreciate their input. Continue wound VAC. Continue nonweightbearing status. Job ID: [id number] [facility]
[2019-12-19] MEDS ORDERED: Allopurinol 100 MG TAB PO SCH (09:00)
[2019-12-19] MEDS ORDERED: Amlodipine 5 MG TAB PO SCH (09:00)
[2019-12-19] MEDS: Aspirin Chewable 81 MG TAB PO SCH (10:35)
[2019-12-19] MEDS: Morphine 2 MG/ML VIAL SLOW IVP PRN (11:39)
[2019-12-19] MEDS: Lactated Ringer's 1,000 ML IV SCH ×2 (11:44→20:56)
--- NOTE | 2019-12-19 18:05 | PDOC.HHP ---
Hospitalist ROS - Medication Medications: Active Medications Generic Name Dose Route Start Last Admin Trade Name Freq PRN Reason Stop Dose Admin Ascorbic Acid 500 mg 12/18/19 21:00 12/19/19 08:11 Vitamin C PO 500 mg BID CJ Administration Aspirin 81 mg 12/17/19 21:00 12/19/19 08:12 Ecotrin PO 81 mg BID CJ Administration Aspirin 81 mg 12/19/19 09:00 12/19/19 10:35 Aspirin Chewable PO Not Given DAILY CJ Atorvastatin Calcium 40 mg 12/18/19 21:00 12/18/19 20:53 Lipitor PO 40 mg HS CJ Administration Carvedilol 25 mg 12/18/19 21:00 12/19/19 08:12 Coreg PO 25 mg BID CJ Administration Clonidine 0.3 mg 12/18/19 21:00 12/19/19 08:12 Catapres PO 0.3 mg BID CJ Administration Lactated Ringer's 1,000 mls @ 75 mls/hr 12/17/19 14:30 12/19/19 11:44 Lactated Ringer's IV 1,000 mls .[id number] CJ Administration Piperacillin Sod/Tazobactam 100 mls @ 200 mls/hr 12/17/19 18:00 12/19/19 12: 26 Sod 3.375 gm/ Sodium Chloride IVPB 12/19/19 20:00 100 mls Q6HR CJ Administration Morphine Sulfate 2 mg 12/17/19 14:16 12/19/19 11:39 Morphine SLOW IVP 2 mg Q2H PRN Administration Moderate Pain (4-6) Ondansetron HCl 4 mg 12/17/19 14:16 12/18/19 13:18 Zofran IV 4 mg Q6H PRN Administration Nausea Promethazine HCl 12.5 mg 12/17/19 14:16 12/18/19 14:17 Phenergan IM 12.5 mg Q4H PRN Administration Nausea Hospitalist Results - Labs Result Diagrams: 12/18/19 04:30 12/18/19 04:30 Lab results: WBC 7.7 thou/uL (4.8-10.8) 12/18/19 04:30 Hgb 7.0 g/dL (12.0-16.0) L 12/18/19 04:30 Hct 22.4 % (36.0-47.0) L 12/18/19 04:30 MCV 87.5 fL (78.0-98.0) 12/18/19 04:30 Plt Count 190 thou/uL (130-400) 12/18/19 04:30 Neutrophils % 74.6 % (42.0-75.0) 12/18/19 04:30 ESR Westergren 13 mm/hr (Less than 30) 12/18/19 04:30 Sodium 139 mmol/L (136-145) 12/18/19 04:30 Potassium 4.7 mmol/L (3.5-5.1) 12/18/19 04:30 Chloride 108 mmol/L (98-107) H 12/18/19 04:30 Carbon Dioxide 23 mmol/L (22-29) 12/18/19 04:30 BUN 34 mg/dL (9.8-20.1) H 12/18/19 04:30 Creatinine 1.79 mg/dL (0.6-1.1) H 12/18/19 04:30 Glucose 147 mg/dL (70-105) H 12/18/19 04:30 Calcium 8.4 mg/dL (7.8-10.44) 12/18/19 04:30 Total Bilirubin 0.3 mg/dL (0.2-1.2) 12/18/19 04:30 AST 7 U/L (5-34) 12/18/19 04:30 ALT Less than 7 U/L (8-55) L 12/18/19 04:30 Alkaline Phosphatase 138 U/L (40-110) H 12/18/19 04:30 C-Reactive Protein 2.24 mg/dL (= or < 0.5) H 12/18/19 04:30 Serum Total Protein 5.1 g/dL (6.0-8.3) L 12/18/19 04:30 Albumin 2.9 g/dL (3.5-5.0) L 12/18/19 04:30
[2019-12-19] MEDS: Amlodipine 5 MG TAB PO SCH (20:25)
[2019-12-19] MEDS: Atorvastatin Calcium 40 MG TAB PO SCH (20:26)
[2019-12-19] MEDS ORDERED: Rivaroxaban 10 MG TAB PO SCH (21:00)
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
--- NOTE | 2019-12-19 21:24 | PDOC.EVN ---
Event Note - Event Note Event Note: Nursing called, during blood transfusion, patient temp climbed to 100.2F, BP increasing SBP 170s, Sp02 low 90s, patient asymptomatic. No acute distress. Stopped transfusion, possible transfusion reaction, initiate transfusion reaction protocol. Patient takes home dose lasix 40mg orally, which was held today. Will give lasix 20mg IVP x 1 dose, stop IVFs. Likely FVO. Can give dose tylenol. Will continue to monitor.
[2019-12-19] MEDS ORDERED: Furosemide 20 MG/2 ML VIAL SLOW IVP SCH (21:30)
[2019-12-20 06:03] LABS: #Eosinphils 0.6 thou/uL (0.0-0.7); #Lymphocytes 1.1 thou/uL (1.20-3.40); #Monocytes 0.6 thou/uL (0.11-0.59); #Neutrophils 6.3 thou/uL (1.40-6.50); %Basophils 0.2 % (0.0-1.0); %Eosinophils 6.5 % (0.0-10.0); %Lymphocytes 13.2 % (21.0-51.0); %Monocytes 7.1 % (0.0-10.0); Hemoglobin 7.2 g/dL (12.0-16.0); Mean Corpuscular HGB CONC 30.8 g/dL (32.0-36.0); Mean Corpuscular Hemoglobin 27.4 pg (27.0-31.0); Mean Corpuscular Volume 88.9 fL (78.0-98.0); Mean Platelet Volume 7.4 fL (7.4-10.4); Platelet Count 183 thou/uL (130-400); Red Blood Cell (RBC) Count 2.64 mill/uL (4.20-5.40); White Blood Cell (WBC) Count 8.6 thou/uL (4.8-10.8)
[2019-12-20 06:05] LABS: Reticulocyte Count 1.7 % (0.5-1.5)
[2019-12-20 06:22] LABS: Anion Gap 14 mmol/L (10-20); BUN (Urea Nitrogen) 37 mg/dL (9.8-20.1); Calc. Creatinine Clearance 53 mL/min (70-130); Calcium 8.4 mg/dL (7.8-10.44); Carbon Dioxide 21 mmol/L (22-29); Chloride 107 mmol/L (98-107); Estimated GFR-MDRD 27; Glucose 124 mg/dL (70-105); Iron 14 ug/dL (50-170); Iron Binding Capacity, Total 184 mcg/dL (265-497); Potassium 4.2 mmol/L (3.5-5.1); Sodium 138 mmol/L (136-145)
[2019-12-20 06:23] LABS: Iron 13 ug/dL (50-170); Iron Binding Capacity, Total 179 mcg/dL (265-497)
--- NOTE | 2019-12-20 08:46 | ULT ---
ULTRASOUND DOPPLER DUPLEX VENOUS BILATERAL LOWER EXTREMITIES: DATE: 12/20/2019 HISTORY: 59-year-old female with history of DVT, status post recent lower extremity surgery with lower extremi ty pain TECHNIQUE: Grayscale, color-flow, and spectral analysis, of the bilateral common femoral, profunda femoral, grea ter saphenous, femoral, popliteal, and posterior tibial, veins. FINDINGS: RIGHT: Partial compressibility of distal portion of femoral vein and popliteal vein, but good blood flow pre sent. Echogenic material in the popliteal vein. Distal posterior tibial vein not visualized due to overlying bandages. LEFT: Posterior tibial vein not visualized due to overlying bandages. All other veins have normal compressibility and blood flow. IMPRESSION: 1) nonocclusive thrombus in distal portion of right femoral vein and right popliteal vein: Chronic ve rsus acute DVT. Chronic is favored. 2) bilateral posterior tibial veins not visualized due to overlying bandages. 3) the rest of the veins have no DVT.
[2019-12-20] MEDS: cloNIDine 0.3 MG TAB PO SCH ×2 (08:53→20:01)
[2019-12-20] MEDS: Aspirin 81 mg Enteric Coated Tablet PO SCH ×2 (08:53→20:01)
[2019-12-20] MEDS: Ascorbic Acid 500 mg Chewable Tablet PO SCH ×2 (08:53→20:01)
[2019-12-20] MEDS: Carvedilol 25 MG TAB PO SCH ×2 (08:54→20:01)
[2019-12-20] MEDS: Ferrous Sulfate 325 MG TAB PO SCH (08:54)
[2019-12-20] MEDS: HumuLIN 70/30 (300 UNITS/3 ML VIAL) SC SCH ×2 (08:54→20:00)
[2019-12-20] MEDS: Aspirin Chewable 81 MG TAB PO SCH (11:02)
[2019-12-20 15:13] LABS: Hemoglobin 7.7 g/dL (12.0-16.0)
--- NOTE | 2019-12-20 17:52 | PDOC.HOSPP ---
- Subjective Encounter Date: 12/20/19 Encounter Time: 14:52 Subjective: Patient states she has been up and walking with PT and has had no issues. Denies feeling lightheaded or short of breath with exertion. Her pain is well- controlled at the moment. Has been tolerating PO intake without any n/v. No complaints at present. She has long-standing anemia and due to low Hb of 7 yesterday she has given 1 unit PRBCs, due to elevated temp it was discontinued. She has had no further spikes in her temp since then. Denies any abdo pain, bright blood per rectum or melena. Has never had any GI bleeds in the past. Remains afebrile this morning. Started on ferrous sulfate yesterday. She has a history of DVT in both lower legs, anticoagulation was discontinued yesterday. - Objective Vital Signs & Weight: Vital Signs (12 hours) Temp Pulse Pulse Resp BP BP BP 12/20/19 15:09 98.6 F 65 16 165/71 H 12/20/19 10:50 98.8 F 74 16 135/65 12/20/19 10:21 74 125/65 12/20/19 08:53 139/70 Pulse Ox 12/20/19 15:09 99 12/20/19 10:50 95 12/20/19 10:21 12/20/19 08:53 Weight Admit Weight 234 lb Weight 234 lb I&O: 12/19/19 12/20/19 12/21/19 06:59 06:59 06:59 Intake Total 64 Output Total 061 1050 Balance -780 -883 Result Diagrams: 12/20/19 14:29 12/20/19 05:10 Additional Labs: Accuchecks 12/20/19 12/20/19 12/20/19 15:23 11:29 05:44 POC Glucose 148 H 155 H 151 H 12/19/19 20:33 POC Glucose 160 H Hospitalist ROS - Review of Systems Constitutional: denies: fever, chills, sweats, weakness, malaise, other Eyes: denies: pain, vision change, conjunctivae inflammation, eyelid inflammation, redness, other ENT: denies: ear pain, ear discharge, nose pain, nose discharge, nose congestion , mouth pain, mouth swelling, throat pain, throat swelling, other Respiratory: denies: cough, dry, shortness of breath, hemoptysis, SOB with excertion, pleuritic pain, sputum, wheezing, other Cardiovascular: denies: chest pain, palpitations, orthopnea, paroxysmal noc. dyspnea, edema, light headedness, other Gastrointestinal: denies: nausea, vomiting, abdominal pain, diarrhea, constipation, melena, hematochezia, other Genitourinary: denies: dysuria, frequency, incontinence, hematuria, retention, other Musculoskeletal: reports: leg pain (left leg, pain well-controlled.). denies: neck pain, shoulder pain, arm pain, back pain, hand pain, foot pain, other Skin: denies: rash, lesions, ozzy, bruising, other Neurological: denies: weakness, numbness, incoordination, change in speech, confusion, seizures, other - Medication Medications: Active Medications Generic Name Dose Route Start Last Admin Trade Name Freq PRN Reason Stop Dose Admin Amlodipine Besylate 5 mg 12/19/19 21:00 12/19/19 20:25 Norvasc PO Not Given HS CJ Ascorbic Acid 500 mg 12/18/19 21:00 12/20/19 08:53 Vitamin C PO 500 mg BID CJ Administration Aspirin 81 mg 12/17/19 21:00 12/20/19 08:53 Ecotrin PO 81 mg BID CJ Administration Aspirin 81 mg 12/19/19 09:00 12/20/19 11:02 Aspirin Chewable PO Not Given DAILY CJ Atorvastatin Calcium 40 mg 12/18/19 21:00 12/19/19 20:26 Lipitor PO 40 mg HS CJ Administration Carvedilol 25 mg 12/18/19 21:00 12/20/19 08:54 Coreg PO 25 mg BID CJ Administration Clonidine 0.3 mg 12/18/19 21:00 12/20/19 08:53 Catapres PO 0.3 mg BID CJ Administration Ferrous Sulfate 325 mg 12/20/19 08:00 12/20/19 08:54 Feosol PO 325 mg QAM-WM CJ Administration Insulin Human Isoph/Insulin Regular 15 units 12/19/19 21:00 12/20/19 08:54 Humulin 70/30 SC 15 unit BID CJ Administration Morphine Sulfate 2 mg 12/17/19 14:16 12/19/19 11:39 Morphine SLOW IVP 2 mg Q2H PRN Administration Moderate Pain (4-6) Ondansetron HCl 4 mg 12/17/19 14:16 12/18/19 13:18 Zofran IV 4 mg Q6H PRN Administration Nausea Promethazine HCl 12.5 mg 12/17/19 14:16 12/18/19 14:17 Phenergan IM 12.5 mg Q4H PRN Administration Nausea Tramadol HCl 100 mg 12/17/19 14:16 12/19/19 20:22 Ultram PO 100 mg Q6H PRN Administration Moderate Pain (4-6) - Exam General Appearance: NAD Eye: PERRL, anicteric sclera ENT: normocephalic atraumatic, moist mucosa Neck: supple, no lymphadenopathy Heart: RRR Respiratory: CTAB, no wheezes, no rales, normal chest expansion, no tachypnea Gastrointestinal: soft (obese), non-tender, non-distended, no guarding, no rigidity Extremities: no edema Skin: no rashes Neurological: cranial nerve grossly intact Musculoskeletal: normal tone, normal strength, no muscle wasting Psychiatric: normal affect, normal behavior, A&O x 3 Hosp A/P (1) Hypertension Code(s): I10 - ESSENTIAL (PRIMARY) HYPERTENSION Status: Acute (2) Anemia Code(s): D64.9 - ANEMIA, UNSPECIFIED Status: Chronic (3) History of DVT (deep vein thrombosis) Code(s): Z86.718 - PERSONAL HISTORY OF OTHER VENOUS THROMBOSIS AND EMBOLISM Status: Chronic (4) Diabetes mellitus type 2 in obese Code(s): E11.69 - TYPE 2 DIABETES MELLITUS WITH OTHER SPECIFIED COMPLICATION; E66.9 - OBESITY, UNSPECIFIED Status: Chronic (5) CKD (chronic kidney disease) Code(s): N18.9 - CHRONIC KIDNEY DISEASE, UNSPECIFIED Status: Chronic (6) Gout Code(s): M10.9 - GOUT, UNSPECIFIED Status: Chronic (7) Hyperlipidemia Code(s): E78.5 - HYPERLIPIDEMIA, UNSPECIFIED Status: Chronic - Plan PT/OT Continue to monitor H/H. Appears to be at baseline. Check stool for occult blood. Anticoagulation restarted, as per discussion with Dr. Merchant. Monitor BP. Home meds reconciled. Monitor glucose, ISS initiated. Home meds restarted. Monitor renal function. GI Prophylaxis. Disposition as per primary team.
[2019-12-20] MEDS ORDERED: Rivaroxaban 10 MG TAB PO SCH (18:07)
[2019-12-20] MEDS: Atorvastatin Calcium 40 MG TAB PO SCH (20:01)
[2019-12-20] MEDS: Famotidine 20 MG TAB PO SCH (20:01)
[2019-12-20] MEDS: Amlodipine 5 MG TAB PO SCH (20:01)
[2019-12-21 05:23] LABS: Hemoglobin 7.2 g/dL (12.0-16.0); Platelet Count 183 thou/uL (130-400)
[2019-12-21 05:24] LABS: #Eosinphils 0.5 thou/uL (0.0-0.7); #Monocytes 0.5 thou/uL (0.11-0.59); #Neutrophils 5.5 thou/uL (1.40-6.50); %Eosinophils 6.1 % (0.0-10.0); %Lymphocytes 13.8 % (21.0-51.0); %Monocytes 6.2 % (0.0-10.0); %Neutrophils 73.8 % (42.0-75.0); Hemoglobin 7.2 g/dL (12.0-16.0); Mean Corpuscular HGB CONC 31.6 g/dL (32.0-36.0); Mean Corpuscular Volume 88.6 fL (78.0-98.0); Mean Platelet Volume 7.3 fL (7.4-10.4); Platelet Count 182 thou/uL (130-400); RBC Distribution Width 14.8 % (11.5-14.5); Red Blood Cell (RBC) Count 2.57 mill/uL (4.20-5.40); White Blood Cell (WBC) Count 7.4 thou/uL (4.8-10.8)
[2019-12-21 05:45] LABS: Anion Gap 12 mmol/L (10-20); BUN (Urea Nitrogen) 38 mg/dL (9.8-20.1); Calc. Creatinine Clearance 56 mL/min (70-130); Calcium 8.5 mg/dL (7.8-10.44); Carbon Dioxide 22 mmol/L (22-29); Chloride 109 mmol/L (98-107); Estimated GFR-MDRD 28; Glucose 199 mg/dL (70-105); Potassium 4.2 mmol/L (3.5-5.1); Sodium 139 mmol/L (136-145)
--- NOTE | 2019-12-21 08:44 | PDOC.HOSPP ---
- Subjective Encounter Date: 12/21/19 Encounter Time: 08:42 Subjective: alert,no distress - Objective Vital Signs & Weight: Vital Signs (12 hours) Temp Pulse Resp BP Pulse Ox 12/21/19 08:05 98.7 F 75 16 177/81 H 93 L 12/21/19 00:08 98.5 F 76 16 165/74 H 96 Weight Admit Weight 234 lb Weight 234 lb I&O: 12/20/19 12/21/19 12/22/19 06:59 06:59 06:59 Intake Total 64 Output Total 1050 75 Balance -986 -75 Result Diagrams: 12/21/19 04:59 12/21/19 04:59 Additional Labs: Accuchecks 12/21/19 12/20/19 12/20/19 05:24 20:05 15:23 POC Glucose 214 H 163 H 148 H 12/20/19 11:29 POC Glucose 155 H Hospitalist ROS - Medication Medications: Active Medications Generic Name Dose Route Start Last Admin Trade Name Freq PRN Reason Stop Dose Admin Amlodipine Besylate 5 mg 12/19/19 21:00 12/20/19 20:01 Norvasc PO 5 mg HS CJ Administration Ascorbic Acid 500 mg 12/18/19 21:00 12/20/19 20:01 Vitamin C PO 500 mg BID CJ Administration Aspirin 81 mg 12/17/19 21:00 12/20/19 20:01 Ecotrin PO 81 mg BID CJ Administration Aspirin 81 mg 12/19/19 09:00 12/20/19 11:02 Aspirin Chewable PO Not Given DAILY CJ Atorvastatin Calcium 40 mg 12/18/19 21:00 12/20/19 20:01 Lipitor PO 40 mg HS CJ Administration Carvedilol 25 mg 12/18/19 21:00 12/20/19 20:01 Coreg PO 25 mg BID CJ Administration Clonidine 0.3 mg 12/18/19 21:00 12/20/19 20:01 Catapres PO 0.3 mg BID CJ Administration Famotidine 20 mg 12/20/19 21:00 12/20/19 20:01 Pepcid PO 20 mg BID CJ Administration Ferrous Sulfate 325 mg 12/20/19 08:00 12/20/19 08:54 Feosol PO 325 mg QAM-WM CJ Administration Insulin Human Isoph/Insulin Regular 15 units 12/19/19 21:00 12/20/19 20:00 Humulin 70/30 SC 15 unit BID CJ Administration Morphine Sulfate 2 mg 12/17/19 14:16 12/19/19 11:39 Morphine SLOW IVP 2 mg Q2H PRN Administration Moderate Pain (4-6) Ondansetron HCl 4 mg 12/17/19 14:16 12/18/19 13:18 Zofran IV 4 mg Q6H PRN Administration Nausea Promethazine HCl 12.5 mg 12/17/19 14:16 12/18/19 14:17 Phenergan IM 12.5 mg Q4H PRN Administration Nausea Tramadol HCl 100 mg 12/17/19 14:16 12/19/19 20:22 Ultram PO 100 mg Q6H PRN Administration Moderate Pain (4-6) - Exam General Appearance: awake alert Neck: no JVD Heart: RRR, no murmur Respiratory: CTAB Gastrointestinal: soft, normal bowel sounds Extremities: 1+ LE edema Extremities - other findings: bandaged L ankle Hosp A/P (1) Hypertension Code(s): I10 - ESSENTIAL (PRIMARY) HYPERTENSION Status: Acute Qualifiers: Hypertension type: essential hypertension Qualified Code(s): I10 - Essential (primary) hypertension (2) Anemia Code(s): D64.9 - ANEMIA, UNSPECIFIED Status: Chronic Qualifiers: Anemia type: unspecified type Qualified Code(s): D64.9 - Anemia, unspecified (3) CKD (chronic kidney disease) Code(s): N18.9 - CHRONIC KIDNEY DISEASE, UNSPECIFIED Status: Chronic Qualifiers: Chronic kidney disease stage: stage 3 (moderate) Qualified Code(s): N18.3 - Chronic kidney disease, stage 3 (moderate) (4) Diabetes mellitus type 2 in obese Code(s): E11.69 - TYPE 2 DIABETES MELLITUS WITH OTHER SPECIFIED COMPLICATION; E66.9 - OBESITY, UNSPECIFIED Status: Chronic (5) History of DVT (deep vein thrombosis) Code(s): Z86.718 - PERSONAL HISTORY OF OTHER VENOUS THROMBOSIS AND EMBOLISM Status: Chronic (6) Hyperlipidemia Code(s): E78.5 - HYPERLIPIDEMIA, UNSPECIFIED Status: Chronic Qualifiers: Hyperlipidemia type: unspecified Qualified Code(s): E78.5 - Hyperlipidemia , unspecified - Plan hold xarelto consult [facility] for IVC filter will need filter until safe to resume anticoag chronically
[2019-12-21] MEDS: Aspirin Chewable 81 MG TAB PO SCH (09:04)
[2019-12-21] MEDS: Aspirin 81 mg Enteric Coated Tablet PO SCH (09:04)
[2019-12-21] MEDS: Famotidine 20 MG TAB PO SCH (09:46)
[2019-12-21] MEDS: Ferrous Sulfate 325 MG TAB PO SCH (09:46)
[2019-12-21] MEDS: cloNIDine 0.3 MG TAB PO SCH (09:46)
[2019-12-21] MEDS: Ascorbic Acid 500 mg Chewable Tablet PO SCH (09:46)
[2019-12-21] MEDS: HumuLIN 70/30 (300 UNITS/3 ML VIAL) SC SCH (09:47)
[2019-12-21] MEDS: Carvedilol 25 MG TAB PO SCH (09:47)
[2019-12-21] MEDS: Morphine 2 MG/ML VIAL SLOW IVP PRN (10:22)
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
[2019-12-21 16:11] VITALS: BP 162/79; TEMP 98.7
[2019-12-25] MEDS ORDERED: Ergocalciferol 1.25 MG(50,000 UNITS) CAP PO SCH (09:00)
--- NOTE | 2019-12-25 11:59 | DIS ---
DATE OF ADMISSION: 12/17/2019 DATE OF DISCHARGE: 12/21/2019 This is Fabrizio Munguia PA-C dictating a report for Fransico Mendez MD. PREOPERATIVE DIAGNOSES: 1. Failure of delta frame external fixator with Steinmann pin cut out from the calcaneus. 2. Status post open left pilon fracture with application of delta frame external fixator. POSTOPERATIVE DIAGNOSES: 1. Failure of delta frame external fixator with Steinmann pin cut out from the calcaneus. 2. Status post open left pilon fracture with application of delta frame external fixator. PROCEDURES: 1. Removal of delta frame external fixator, left tibia. 2. Percutaneous pin stabilization of left ankle. 3. Irrigation and debridement of multiple wounds, left ankle and heel. HOSPITAL STAY: The patient did well from a pain standpoint. She did need quite a bit of help with therapy moving around. We did have Medicine see the patient as well as Cardiovascular for other health issues, but in regard to the ankle, she did well with pain and worked with Physical Therapy, Occupational Therapy, but as much as she wanted to go home, we discussed that the patient really needed to put no weight on that ankle. Her external fixator had already failed. She did admit that she had stepped on it a few times. Her bone is quite bad and we encouraged her to go to a rehab, so she can get some further care and rehab on that foot and gain some strength in her upper body, so she can take care of herself. By 12/20, she was ready to discharge. DISCHARGE CONDITION: Good/stable. DISPOSITION: To rehab. FOLLOWUP: We would like to see her in 7 to 14 days to check out her wounds. Wound Care did apply a wound VAC to her newly debrided wounds and her other open wounds from the delta frame and Steinmann pin. The patient encouraged to call if any problems arise, Rehab knows to call if there are any issues also. Job ID: [id number]
== END 2019-12-21 17:15 | DRG 464 ==
LOC: SDC 10:21 → OBSVTOIN 14:26 → SURG A 14:26
PROVIDERS: ADMIT Orthopaedic Surgery; ATTEND Orthopaedic Surgery
PROC: 0SPGX5Z Removal of External Fixation Device from Left Ankle Joint, External Approach (ICD-10-PCS; principal; 2019-12-17)
PROC: 0JBP0ZZ Excision of Left Lower Leg Subcutaneous Tissue and Fascia, Open Approach (ICD-10-PCS; 2019-12-17)
PROC: 0QHH34Z Insertion of Internal Fixation Device into Left Tibia, Percutaneous Approach (ICD-10-PCS; 2019-12-17)
PROC: 30233N1 Transfusion of Nonautologous Red Blood Cells into Peripheral Vein, Percutaneous Approach (ICD-10-PCS; 2019-12-19)
DX: T84.89XA Other specified complication of internal orthopedic prosthetic devices, implants and grafts, initial encounter (principal); N18.4 Chronic kidney disease, stage 4 (severe); Y84.8 Other medical procedures as the cause of abnormal reaction of the patient, or of later complication, without mention of misadventure at the time of the procedure; E11.22 Type 2 diabetes mellitus with diabetic chronic kidney disease; E78.5 Hyperlipidemia, unspecified; I12.9 Hypertensive chronic kidney disease with stage 1 through stage 4 chronic kidney disease, or unspecified chronic kidney disease; M19.90 Unspecified osteoarthritis, unspecified site; M10.9 Gout, unspecified; E66.9 Obesity, unspecified; E78.00 Pure hypercholesterolemia, unspecified; D63.1 Anemia in chronic kidney disease; D50.9 Iron deficiency anemia, unspecified; E11.42 Type 2 diabetes mellitus with diabetic polyneuropathy; Z88.8 Allergy status to other drugs, medicaments and biological substances; Z88.1 Allergy status to other antibiotic agents; Z91.040 Latex allergy status; Z79.82 Long term (current) use of aspirin; Z79.4 Long term (current) use of insulin; Z79.899 Other long term (current) drug therapy; Z68.36 Body mass index [BMI] 36.0-36.9, adult; Z86.718 Personal history of other venous thrombosis and embolism; Z98.51 Tubal ligation status
CPT/HCPCS: 36415; 36416; 36430; 76000; 80048; 80053; 82274; 82728; 83540; 83550; 85014; 85018; 85025; 85046; 85049; 85652; 86140; 86850; 86900; 86901; 87324; 87449; 93970; 96365; 96366; 96372; 96375; 96376; C1713; G0378; J1815; J1885; J1940; J1956; J2270; J2405; J2543; J2550; J2704; J3010; J3370; J3490; P9016

== ENCOUNTER 2019-12-25 21:26 | Emergency (ER) | payer OTHER | END 2019-12-25 22:35 | disposition home or self-care (01) | LOC: ERS 21:26 | DX: I10 Essential (primary) hypertension (principal); R09.82 Postnasal drip; E78.5 Hyperlipidemia, unspecified; E11.9 Type 2 diabetes mellitus without complications; Z79.899 Other long term (current) drug therapy; Z79.82 Long term (current) use of aspirin | CPT/HCPCS: 99283 ==

== ENCOUNTER 2020-02-26 06:43 | Outpatient (CLI) | payer OTHER ==
[2020-02-27 10:54] LABS: SARS-CoV-2 MS2 Positive; SARS-CoV-2 N Gene Negative; SARS-CoV-2 S Gene Negative; SARS-CoV-2 by NAA Not Detected (NotDetected); SARS-CoV-2 orf1ab Negative
== END 2020-02-26 06:44 | disposition home or self-care (01) ==
LOC: LABBT 06:43
PROVIDERS: ATTEND Orthopaedic Surgery
DX: S82.892A Other fracture of left lower leg, initial encounter for closed fracture (principal); Z20.828 Contact with and (suspected) exposure to other viral communicable diseases
CPT/HCPCS: 87635; U0003

== ENCOUNTER 2020-02-26 14:30 | Inpatient (IN) | payer OTHER ==
[2020-02-28 09:24] VITALS: BMI 34.2
[2020-02-29] MEDS ORDERED: Fentanyl 100 MCG/2 ML VIAL ONE ×2 (06:18→07:32)
[2020-02-29] MEDS ORDERED: Midazolam HCl 2 mg/2 ml Vial ONE (06:18)
[2020-02-29] MEDS ORDERED: Lidocaine 1% (PF) 30 ML VIAL ONE (06:58)
[2020-02-29] MEDS ORDERED: Clindamycin/D5W 900 mg/50 ml Premix Bag ONE (07:22)
[2020-02-29] MEDS ORDERED: Levofloxacin 500 mg/D5W 100 ml Premix Bag ONE (07:22)
[2020-02-29] MEDS ORDERED: Ropivacaine 0.2% 550 ML 550 ML NERVE BLCK SCH (07:30)
[2020-02-29] MEDS ORDERED: Zolpidem Tartrate 5 MG TAB PO PRN (07:30)
[2020-02-29] MEDS ORDERED: HYDROcodone/Acetaminophen 10/325 mg Tablet PO PRN (07:30)
[2020-02-29] MEDS ORDERED: traMADol HCl 50 MG TAB PO PRN ×2 (07:30)
[2020-02-29 07:40] LABS: Anion Gap 13 mmol/L (10-20); BUN (Urea Nitrogen) 57 mg/dL (9.8-20.1); Calc. Creatinine Clearance 60 mL/min (70-130); Calcium 9.4 mg/dL (7.8-10.44); Carbon Dioxide 25 mmol/L (22-29); Chloride 105 mmol/L (98-107); Glucose 229 mg/dL (70-105); Potassium 4.2 mmol/L (3.5-5.1); Sodium 139 mmol/L (136-145)
[2020-02-29] MEDS ORDERED: Promethazine HCl 25 MG/ML VIAL SLOW IVP PRN (09:14)
[2020-02-29] MEDS ORDERED: Meperidine HCl/PF 25 MG/ML VIAL SLOW IVP PRN (09:14)
[2020-02-29] MEDS ORDERED: PACU-Morphine 4MG/ML VIAL SLOW IVP PRN (09:14)
[2020-02-29] MEDS ORDERED: Promethazine HCl 25 MG/ML VIAL IM PRN (09:14)
[2020-02-29] MEDS ORDERED: Glycopyrrolate 0.2 MG/ML 5 ML SYRINGE ONE (12:46)
[2020-02-29] MEDS ORDERED: Ropivacaine 0.2% HCl/PF (40 MG/20 ML VIAL) ONE (12:46)
[2020-02-29] MEDS ORDERED: Rocuronium Bromide 10 MG/ML (10ML VIAL) ONE (12:46)
[2020-02-29] MEDS ORDERED: Ondansetron PF 4 MG/2 ML Vial ONE (12:46)
[2020-02-29] MEDS ORDERED: Bupivacaine HCl 0.5%/Epinephrine 1:200,000/PF 30 ml Vial ONE (12:46)
[2020-02-29] MEDS ORDERED: PROPOFOL 200 MG/20 ML VIAL ONE (12:46)
[2020-02-29] MEDS ORDERED: Ropivacaine 0.5% HCl/PF (150 MG/30 ML VIAL) ONE (12:46)
[2020-02-29] MEDS ORDERED: Lidocaine 1% PF 5 ML VIAL ONE (12:46)
[2020-02-29] MEDS ORDERED: Metoclopramide HCl 10 MG/2 ML VIAL ONE (12:46)
[2020-02-29] MEDS: CEFAZOLIN 2 GM in Premix Bag 1 BAG IVPB SCH ×2 (14:11→20:45)
[2020-02-29] MEDS: HYDROcodone/Acetaminophen 10/325 mg Tablet PO PRN ×2 (14:11→20:55)
[2020-02-29] MEDS: Fentanyl 100 MCG/2 ML VIAL IV PRN ×2 (15:31→16:32)
[2020-02-29] MEDS: Ondansetron PF 4 MG/2 ML Vial IVP PRN (17:12)
--- NOTE | 2020-02-29 19:00 | RAD ---
EXAM: 2 views of the left ankle HISTORY: Left foot fusion for severe degenerative changes in the ankle COMPARISON: 02/21/2020 FINDINGS: 2 limited intraoperative fluoroscopic views of the left ankle shows the patient be ongoing fusion of the ankle joint with a retrograde intramedullary shagufta extending through the calcaneus, talus, and tibia. Additionally, multiple screws are seen in the calcaneus, talus, and tibia. No perih ardware lucency is seen. The distal aspect of the fibula has been resected. IMPRESSION: Left ankle fusion as above
[2020-02-29] MEDS: Aspirin 81 mg Enteric Coated Tablet PO SCH (20:45)
[2020-02-29] MEDS: Promethazine HCl 25 MG/ML VIAL IM PRN (22:52)
[2020-03-01] MEDS: CEFAZOLIN 2 GM in Premix Bag 1 BAG IVPB SCH (05:00)
[2020-03-01] MEDS: Ondansetron PF 4 MG/2 ML Vial IVP PRN ×2 (05:12→17:57)
[2020-03-01] MEDS: HYDROcodone/Acetaminophen 10/325 mg Tablet PO PRN ×3 (05:25→18:06)
[2020-03-01 06:29] LABS: #Eosinphils 0.1 thou/uL (0.0-0.7); #Lymphocytes 1.1 thou/uL (1.20-3.40); #Neutrophils 7.3 thou/uL (1.40-6.50); %Basophils 0.2 % (0.0-1.0); %Monocytes 10.7 % (0.0-10.0); %Neutrophils 77.1 % (42.0-75.0); Hemoglobin 9.3 g/dL (12.0-16.0); Mean Corpuscular HGB CONC 33.1 g/dL (32.0-36.0); Mean Corpuscular Hemoglobin 29.4 pg (27.0-31.0); Mean Corpuscular Volume 88.8 fL (78.0-98.0); Platelet Count 147 thou/uL (130-400); RBC Distribution Width 15.8 % (11.5-14.5); Red Blood Cell (RBC) Count 3.18 mill/uL (4.20-5.40); White Blood Cell (WBC) Count 9.5 thou/uL (4.8-10.8)
[2020-03-01 06:43] LABS: ALT (SGPT) 21 U/L (8-55); AST (SGOT) 18 U/L (5-34); Albumin 3.5 g/dL (3.5-5.0); Alkaline Phosphatase 83 U/L (40-110); Anion Gap 13 mmol/L (10-20); BUN (Urea Nitrogen) 46 mg/dL (9.8-20.1); Bilirubin, Total 0.4 mg/dL (0.2-1.2); Calc. Creatinine Clearance 58 mL/min (70-130); Carbon Dioxide 26 mmol/L (22-29); Chloride 105 mmol/L (98-107); Globulin 2.2 g/dL (2.4-3.5); Glucose 199 mg/dL (70-105); Potassium 4.3 mmol/L (3.5-5.1); Protein, Total 5.7 g/dL (6.0-8.3); Sodium 140 mmol/L (136-145)
[2020-03-01] MEDS ORDERED: FLU VACC QS2020-21(6MOS UP)/PF 60 MCG/0.5 ML SYRINGE IM ONE (09:00)
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
[2020-03-01] MEDS: Aspirin 81 mg Enteric Coated Tablet PO SCH ×2 (10:21→20:22)
[2020-03-01] MEDS ORDERED: TETANUS AND DIPHTHERIA TOX/PF 0.5 ML DISP.SYRIN IM SCH (11:15)
[2020-03-01] MEDS: Promethazine HCl 25 MG/ML VIAL IM PRN (21:39)
[2020-03-02] MEDS ORDERED: Hydrocerin (Eucerin) Cream 120 gm Jar TOP PRN (02:03)
[2020-03-02] MEDS ORDERED: diphenhydrAMINE 25 MG CAP PO PRN (02:03)
[2020-03-02] MEDS: Promethazine HCl 25 MG/ML VIAL IM PRN (05:51)
[2020-03-02 06:17] LABS: Hemoglobin 9.1 g/dL (12.0-16.0); Mean Corpuscular HGB CONC 32.2 g/dL (32.0-36.0); Mean Corpuscular Hemoglobin 28.7 pg (27.0-31.0); Mean Corpuscular Volume 89.2 fL (78.0-98.0); Mean Platelet Volume 7.9 fL (7.4-10.4); Platelet Count 166 thou/uL (130-400); RBC Distribution Width 15.7 % (11.5-14.5); Red Blood Cell (RBC) Count 3.17 mill/uL (4.20-5.40); White Blood Cell (WBC) Count 10.6 thou/uL (4.8-10.8)
[2020-03-02] MEDS: Aspirin 81 mg Enteric Coated Tablet PO SCH (08:17)
[2020-03-02 11:53] VITALS: BP 151/52; TEMP 99
--- NOTE | 2020-03-04 11:45 | DIS ---
DATE OF ADMISSION: 02/29/2020 DATE OF DISCHARGE: 03/02/2020 This is Fabrizio Munguia PA-C dictating a report for Fransico Mendez MD. PREOPERATIVE DIAGNOSIS: Multiple failed ankle repairs on the left foot. POSTOPERATIVE DIAGNOSIS: Multiple failed ankle repairs on the left foot. PROCEDURE: Patient underwent left hindfoot fusion. The patient understands the necessity not to walk on this. It has been strictly stated to her. She was admitted to [facility] [id number] where she worked with staff Physical therapy, Occupational therapy and did fairly well. By postop day #2, she felt ready to go home. It should be noted the nurses called me when they were getting her in the car. She slide down to the ground, but did not fall. This is quite concerning for Ms. Layne, but again she knows what she needs to do to get healing in this ankle. DISCHARGE CONDITION: Good/stable. DISPOSITION: Home with family to care for her. DISCHARGE MEDICATIONS: Given with usage instructions. I also instructed the patient if she has any questions or concerns, not hesitate and call at any hour of the day. We are available 08/11. Job ID: [id number]
== END 2020-03-02 12:50 | disposition home or self-care (01) | DRG 494 ==
LOC: SURG A 02-29 06:16
PROVIDERS: ADMIT Orthopaedic Surgery; ATTEND Orthopaedic Surgery
PROC: 0SGJ04Z Fusion of Left Tarsal Joint with Internal Fixation Device, Open Approach (ICD-10-PCS; principal; 2020-02-29)
PROC: 0SGJ07Z Fusion of Left Tarsal Joint with Autologous Tissue Substitute, Open Approach (ICD-10-PCS; 2020-02-29)
PROC: 0QBH0ZZ Excision of Left Tibia, Open Approach (ICD-10-PCS; 2020-02-29)
DX: S82.852 Displaced trimalleolar fracture of left lower leg (principal); S82.045D Nondisplaced comminuted fracture of left patella, subsequent encounter for closed fracture with routine healing; I10 Essential (primary) hypertension; E78.00 Pure hypercholesterolemia, unspecified; E10.9 Type 1 diabetes mellitus without complications; M19.90 Unspecified osteoarthritis, unspecified site; Z20.828 Contact with and (suspected) exposure to other viral communicable diseases; Z79.899 Other long term (current) drug therapy; Z79.4 Long term (current) use of insulin; Z79.82 Long term (current) use of aspirin; Z79.01 Long term (current) use of anticoagulants; V89.2XXD Person injured in unspecified motor-vehicle accident, traffic, subsequent encounter; Z88.8 Allergy status to other drugs, medicaments and biological substances; Z88.1 Allergy status to other antibiotic agents; Z91.040 Latex allergy status
CPT/HCPCS: 36415; 76000; 80048; 80053; 85025; 85027; A4306; C1713; J0690; J1956; J2001; J2250; J2405; J2550; J2704; J2765; J2795; J3010; J3490; Q0163

== ENCOUNTER 2021-04-24 21:02 | Inpatient (IN) | payer OTHER ==
[2021-04-25 00:17] VITALS: BMI 34.2
[2021-04-25] MEDS ORDERED: Acetaminophen 325 MG TAB PO PRN (03:54)
[2021-04-25] MEDS ORDERED: Acetaminophen 650 MG Suppository PR PRN (03:54)
[2021-04-25] MEDS: Ondansetron ODT 4 MG TAB PO PRN ×2 (04:19→16:00)
[2021-04-25] MEDS ORDERED: Ergocalciferol 1.25 MG(50,000 UNITS) CAP PO SCH ×2 (08:30→09:00)
[2021-04-25] MEDS ORDERED: Aspirin Chewable 81 MG TAB PO SCH (09:00)
[2021-04-25] MEDS ORDERED: Non-Formulary Item 1 EACH (Insulin Aspart Prot/Insuln Asp [Novolog Mix 70-30 Flexpen] 100 SC SCH (09:00)
[2021-04-25] MEDS ORDERED: Carvedilol 25 MG TAB PO SCH (09:00)
[2021-04-25] MEDS: Aspirin Chewable 81 MG TAB PO SCH ×2 (09:47→15:20)
[2021-04-25] MEDS: cloNIDine 0.3 MG TAB PO SCH ×2 (09:47→21:07)
[2021-04-25] MEDS: Carvedilol 25 MG TAB PO SCH ×2 (09:47→21:07)
[2021-04-25] MEDS: Ascorbic Acid 500 mg Chewable Tablet PO SCH ×2 (09:47→21:07)
[2021-04-25] MEDS: HumuLIN 70/30 (300 UNITS/3 ML VIAL) SC SCH ×2 (09:48→21:07)
[2021-04-25 12:34] LABS: #Eosinphils 0.1 thou/uL (0.0-0.7); #Lymphocytes 0.6 thou/uL (1.20-3.40); #Monocytes 0.4 thou/uL (0.11-0.59); #Neutrophils 2.9 thou/uL (1.40-6.50); %Lymphocytes 14.6 % (21.0-51.0); %Monocytes 10.2 % (0.0-10.0); %Neutrophils 72.2 % (42.0-75.0); Hemoglobin 8.9 g/dL (12.0-16.0); Mean Corpuscular HGB CONC 33.9 g/dL (32.0-36.0); Mean Corpuscular Hemoglobin 31.8 pg (27.0-31.0); Mean Corpuscular Volume 93.8 fL (78.0-98.0); Mean Platelet Volume 7.8 fL (7.4-10.4); Platelet Count 149 thou/uL (130-400); RBC Distribution Width 14.3 % (11.5-14.5); Red Blood Cell (RBC) Count 2.79 mill/uL (4.20-5.40)
[2021-04-25 12:55] LABS: ALT (SGPT) 49 U/L (8-55); AST (SGOT) 23 U/L (5-34); Albumin 3.2 g/dL (3.5-5.0); Alkaline Phosphatase 96 U/L (40-110); Anion Gap 14 mmol/L (10-20); BUN (Urea Nitrogen) 59 mg/dL (9.8-20.1); Bilirubin, Total 0.3 mg/dL (0.2-1.2); Calc. Creatinine Clearance 33 mL/min (70-130); Calcium 8.7 mg/dL (7.8-10.44); Carbon Dioxide 16 mmol/L (22-29); Chloride 111 mmol/L (98-107); Globulin 2.5 g/dL (2.4-3.5); Glucose 169 mg/dL (70-105); Magnesium 2.2 mg/dL (1.6-2.6); Phosphorus 3.8 mg/dL (2.3-4.7); Potassium 4.5 mmol/L (3.5-5.1); Protein, Total 5.7 g/dL (6.0-8.3); Sodium 136 mmol/L (136-145)
[2021-04-25] MEDS: Rivaroxaban 10 MG TAB PO SCH (16:00)
[2021-04-25 18:22] LABS: Bilirubin Negative (Negative); Blood, Urine 1+ (Negative); Clarity Clear (Clear); Glucose, Urine (Dipstick) 70 mg/dL (Negative); Ketone, Urine Negative (Negative); Leukocyte 250 Leu/uL (Negative); Nitrite Negative (Negative); Protein, Urine (Dipstick) 300 mg/dL (Neg-Trace); RBC/HPF 0-3 HPF (0-3); Specific Gravity, Urine 1.016 (1.002-1.036); Squamous Epithelial 0-3 HPF (0-3); Urobilinogen Normal mg/dL (Less than 2); WBC/HPF 21-50 HPF (0-3)
[2021-04-25 18:23] LABS: Bacteria/HPF 1+ HPF (None Seen)
[2021-04-25 18:24] LABS: Urine Culture Reflex Yes Yes
[2021-04-25 18:36] LABS: Legionella Urinary Ag Negative (Negative)
[2021-04-25 18:37] LABS: Strep pneumo Urine Ag NEGATIVE (NEGATIVE)
[2021-04-25] MEDS ORDERED: Non-Formulary Item 1 EACH (Rivaroxaban [Xarelto] 20 MG Tablet) PO SCH (21:00)
[2021-04-25] MEDS: Amlodipine 5 MG TAB PO SCH (21:05)
[2021-04-25] MEDS: Sodium Chloride 0.9% 1,000 ML IV SCH (21:05)
[2021-04-25] MEDS: Atorvastatin Calcium 20 MG TAB PO SCH (21:07)
[2021-04-25] MEDS: AMOXicillin 250 MG CAP PO SCH ×2 (21:09→23:00)
[2021-04-25] MEDS: Ondansetron PF 4 MG/2 ML Vial IVP PRN (21:12)
[2021-04-25] MEDS ORDERED: Metoclopramide HCl 10 MG/2 ML VIAL IVP PRN (23:09)
[2021-04-26 00:19] LABS: Creatinine, Urine 55.36 mg/dL (47-110)
[2021-04-26] MEDS: Ondansetron PF 4 MG/2 ML Vial IVP PRN (05:44)
[2021-04-26] MEDS: Sodium Chloride 0.9% 1,000 ML IV SCH ×3 (05:45→21:54)
[2021-04-26 07:39] LABS: #Eosinphils 0.1 thou/uL (0.0-0.7); #Lymphocytes 0.6 thou/uL (1.20-3.40); #Monocytes 0.4 thou/uL (0.11-0.59); #Neutrophils 2.2 thou/uL (1.40-6.50); %Basophils 0.1 % (0.0-1.0); %Lymphocytes 19.3 % (21.0-51.0); %Monocytes 10.7 % (0.0-10.0); %Neutrophils 67.9 % (42.0-75.0); Hemoglobin 8.2 g/dL (12.0-16.0); Mean Corpuscular HGB CONC 32.6 g/dL (32.0-36.0); Mean Corpuscular Hemoglobin 30.9 pg (27.0-31.0); Mean Corpuscular Volume 94.7 fL (78.0-98.0); Mean Platelet Volume 7.5 fL (7.4-10.4); Platelet Count 148 thou/uL (130-400); RBC Distribution Width 14.2 % (11.5-14.5); Red Blood Cell (RBC) Count 2.65 mill/uL (4.20-5.40); White Blood Cell (WBC) Count 3.3 thou/uL (4.8-10.8)
[2021-04-26] MEDS: HumuLIN 70/30 (300 UNITS/3 ML VIAL) SC SCH ×2 (07:40→21:54)
[2021-04-26 07:45] LABS: Hemoglobin A1c 6.8 % (4.0-6.0)
[2021-04-26] MEDS: Ascorbic Acid 500 mg Chewable Tablet PO SCH ×2 (07:59→21:43)
[2021-04-26] MEDS: Aspirin Chewable 81 MG TAB PO SCH (07:59)
[2021-04-26] MEDS: cloNIDine 0.3 MG TAB PO SCH ×2 (08:00→21:43)
[2021-04-26] MEDS: Carvedilol 25 MG TAB PO SCH ×2 (08:00→21:43)
[2021-04-26] MEDS: AMOXicillin 250 MG CAP PO SCH (08:01)
[2021-04-26 08:02] LABS: Iron 13 ug/dL (50-170); Iron Binding Capacity, Total 226 mcg/dL (265-497)
[2021-04-26 08:04] LABS: ALT (SGPT) 33 U/L (8-55); AST (SGOT) 18 U/L (5-34); Albumin 2.9 g/dL (3.5-5.0); Alkaline Phosphatase 88 U/L (40-110); Anion Gap 14 mmol/L (10-20); BUN (Urea Nitrogen) 55 mg/dL (9.8-20.1); Bilirubin, Total 0.3 mg/dL (0.2-1.2); Calc. Creatinine Clearance 34 mL/min (70-130); Calcium 8.2 mg/dL (7.8-10.44); Carbon Dioxide 16 mmol/L (22-29); Chloride 111 mmol/L (98-107); Globulin 2.2 g/dL (2.4-3.5); Glucose 156 mg/dL (70-105); Iron 13 ug/dL (50-170); Iron Binding Capacity, Total 229 mcg/dL (265-497); Phosphorus 3.6 mg/dL (2.3-4.7); Potassium 4.7 mmol/L (3.5-5.1); Protein, Total 5.1 g/dL (6.0-8.3); Sodium 136 mmol/L (136-145)
[2021-04-26 08:18] LABS: Ferritin 102.37 ng/mL (10-291)
[2021-04-26 08:19] LABS: Hep C IgG Ab Non-Reactive (NonReactive); Hep C Index 0.07 S/CO (0-0.79)
[2021-04-26] MEDS ORDERED: Azithromycin 250 MG TAB PO SCH (09:00)
[2021-04-26] MEDS: Azithromycin 500 MG in Sodium Chloride 0.9% 250 ML 250 ML IVPB SCH (10:59)
[2021-04-26] MEDS: cefTRIAXone\\ROCEPHIN 2 GM in Sodium Chloride 0.9% 100 ML IVPB SCH (12:58)
[2021-04-26] MEDS: Rivaroxaban 10 MG TAB PO SCH (17:14)
[2021-04-26] MEDS: Amlodipine 5 MG TAB PO SCH (21:42)
[2021-04-26] MEDS: Atorvastatin Calcium 20 MG TAB PO SCH (21:43)
[2021-04-26] MEDS ORDERED: Albuterol Sulfate 1.25 MG/3 ML NEB INH PRN (21:56)
[2021-04-26] MEDS ORDERED: Albuterol 200 PUFF (6.7GM INHALER) INH PRN (22:27)
[2021-04-26] MEDS: GUAIFENESIN SF SOLN 200 MG/10 ML UDCUP PO PRN (22:30)
[2021-04-27] MEDS: Sodium Chloride 0.9% 1,000 ML IV SCH ×3 (01:55→21:45)
[2021-04-27] MEDS: GUAIFENESIN SF SOLN 200 MG/10 ML UDCUP PO PRN ×2 (05:44→14:33)
[2021-04-27 07:13] LABS: #Eosinphils 0.1 thou/uL (0.0-0.7); #Lymphocytes 0.5 thou/uL (1.20-3.40); #Monocytes 0.3 thou/uL (0.11-0.59); %Basophils 0.5 % (0.0-1.0); %Eosinophils 2.6 % (0.0-10.0); %Lymphocytes 12.2 % (21.0-51.0); %Monocytes 8.5 % (0.0-10.0); %Neutrophils 76.1 % (42.0-75.0); Hemoglobin 7.7 g/dL (12.0-16.0); Mean Corpuscular HGB CONC 33.9 g/dL (32.0-36.0); Mean Corpuscular Hemoglobin 31.7 pg (27.0-31.0); Mean Corpuscular Volume 93.5 fL (78.0-98.0); Mean Platelet Volume 7.7 fL (7.4-10.4); Platelet Count 126 thou/uL (130-400); RBC Distribution Width 14.2 % (11.5-14.5); Red Blood Cell (RBC) Count 2.43 mill/uL (4.20-5.40); White Blood Cell (WBC) Count 3.9 thou/uL (4.8-10.8)
[2021-04-27 07:31] LABS: ALT (SGPT) 30 U/L (8-55); AST (SGOT) 17 U/L (5-34); Albumin 2.7 g/dL (3.5-5.0); Alkaline Phosphatase 84 U/L (40-110); Anion Gap 12 mmol/L (10-20); BUN (Urea Nitrogen) 54 mg/dL (9.8-20.1); Bilirubin, Total 0.2 mg/dL (0.2-1.2); Calc. Creatinine Clearance 35 mL/min (70-130); Carbon Dioxide 17 mmol/L (22-29); Chloride 113 mmol/L (98-107); Globulin 2.1 g/dL (2.4-3.5); Glucose 182 mg/dL (70-105); Phosphorus 3.9 mg/dL (2.3-4.7); Potassium 4.7 mmol/L (3.5-5.1); Protein, Total 4.8 g/dL (6.0-8.3); Sodium 137 mmol/L (136-145)
[2021-04-27] MEDS: cloNIDine 0.3 MG TAB PO SCH ×2 (08:09→20:01)
[2021-04-27] MEDS: Ascorbic Acid 500 mg Chewable Tablet PO SCH ×2 (08:09→20:01)
[2021-04-27] MEDS: Aspirin Chewable 81 MG TAB PO SCH (08:09)
[2021-04-27] MEDS: Carvedilol 25 MG TAB PO SCH ×2 (08:09→20:01)
[2021-04-27] MEDS: HumuLIN 70/30 (300 UNITS/3 ML VIAL) SC SCH ×2 (08:10→20:25)
[2021-04-27] MEDS ORDERED: Budesonide 0.5 MG/2 ML NEB INH SCH (08:58)
[2021-04-27] MEDS ORDERED: Dexamethasone 10 MG in Sodium Chloride 0.9% 50 ML IVPB SCH (09:09)
[2021-04-27] MEDS: Dexamethasone 10 MG/ML VIAL SLOW IVP SCH (10:10)
[2021-04-27] MEDS: Azithromycin 500 MG in Sodium Chloride 0.9% 250 ML 250 ML IVPB SCH (10:10)
[2021-04-27] MEDS: Albuterol 200 PUFF (6.7GM INHALER) INH SCH ×3 (10:11→20:13)
[2021-04-27] MEDS: cefTRIAXone\\ROCEPHIN 2 GM in Sodium Chloride 0.9% 100 ML IVPB SCH (12:46)
[2021-04-27] MEDS ORDERED: Albuterol Sulfate 1.25 MG/3 ML NEB INH SCH (13:00)
[2021-04-27] MEDS: Rivaroxaban 10 MG TAB PO SCH (17:33)
[2021-04-27] MEDS ORDERED: Dextrose 5% in Water 1,000 ML IV PRN (17:38)
[2021-04-27] MEDS ORDERED: HumaLOG 300 UNITS/3 ML VIAL SC PRN (17:38)
[2021-04-27] MEDS ORDERED: Dextrose 50% Abboject 50 ML SYRINGE SLOW IVP PRN (17:38)
[2021-04-27] MEDS: HumaLOG 300 UNITS/3 ML VIAL SC PRN (17:48)
[2021-04-27] MEDS: Mometasone 100 MCG/PUFF (1 INHALER) INH SCH (18:09)
[2021-04-27] MEDS: Atorvastatin Calcium 20 MG TAB PO SCH (20:01)
[2021-04-27] MEDS: Amlodipine 5 MG TAB PO SCH (20:01)
[2021-04-28] MEDS: GUAIFENESIN SF SOLN 200 MG/10 ML UDCUP PO PRN ×2 (01:39→19:27)
[2021-04-28] MEDS: Benzonatate 100 MG CAP PO PRN ×2 (01:39→19:27)
[2021-04-28] MEDS: Mometasone 100 MCG/PUFF (1 INHALER) INH SCH ×2 (05:02→17:29)
[2021-04-28] MEDS: Sodium Chloride 0.9% 1,000 ML IV SCH ×3 (05:02→21:20)
[2021-04-28] MEDS: HumaLOG 300 UNITS/3 ML VIAL SC PRN ×3 (05:03→17:29)
[2021-04-28] MEDS: Carvedilol 25 MG TAB PO SCH ×2 (08:12→19:26)
[2021-04-28] MEDS: Aspirin Chewable 81 MG TAB PO SCH (08:12)
[2021-04-28] MEDS: HumuLIN 70/30 (300 UNITS/3 ML VIAL) SC SCH (08:12)
[2021-04-28] MEDS: Albuterol 200 PUFF (6.7GM INHALER) INH SCH ×4 (08:13→19:27)
[2021-04-28] MEDS: Dexamethasone 10 MG/ML VIAL SLOW IVP SCH (08:13)
[2021-04-28] MEDS: Ascorbic Acid 500 mg Chewable Tablet PO SCH ×2 (08:13→19:22)
[2021-04-28] MEDS: cloNIDine 0.3 MG TAB PO SCH ×2 (08:16→19:26)
[2021-04-28] MEDS ORDERED: Amlodipine 5 MG TAB PO SCH (09:00)
[2021-04-28 09:07] LABS: #Lymphocytes 0.3 thou/uL (1.20-3.40); #Monocytes 0.2 thou/uL (0.11-0.59); #Neutrophils 3.9 thou/uL (1.40-6.50); %Eosinophils 0.2 % (0.0-10.0); %Lymphocytes 6.2 % (21.0-51.0); %Monocytes 5.1 % (0.0-10.0); %Neutrophils 88.5 % (42.0-75.0); Hemoglobin 7.9 g/dL (12.0-16.0); Mean Corpuscular HGB CONC 33.4 g/dL (32.0-36.0); Mean Corpuscular Hemoglobin 31.4 pg (27.0-31.0); Mean Corpuscular Volume 94.2 fL (78.0-98.0); Mean Platelet Volume 7.7 fL (7.4-10.4); Platelet Count 142 thou/uL (130-400); White Blood Cell (WBC) Count 4.4 thou/uL (4.8-10.8)
[2021-04-28 09:26] LABS: ALT (SGPT) 26 U/L (8-55); AST (SGOT) 16 U/L (5-34); Albumin 2.8 g/dL (3.5-5.0); Alkaline Phosphatase 85 U/L (40-110); Anion Gap 12 mmol/L (10-20); BUN (Urea Nitrogen) 55 mg/dL (9.8-20.1); Bilirubin, Total 0.2 mg/dL (0.2-1.2); Calc. Creatinine Clearance 37 mL/min (70-130); Calcium 8.1 mg/dL (7.8-10.44); Carbon Dioxide 17 mmol/L (22-29); Chloride 113 mmol/L (98-107); Globulin 2.3 g/dL (2.4-3.5); Glucose 254 mg/dL (70-105); Magnesium 1.9 mg/dL (1.6-2.6); Phosphorus 3.7 mg/dL (2.3-4.7); Potassium 4.9 mmol/L (3.5-5.1); Protein, Total 5.1 g/dL (6.0-8.3); Sodium 137 mmol/L (136-145)
[2021-04-28] MEDS: Azithromycin 500 MG in Sodium Chloride 0.9% 250 ML 250 ML IVPB SCH (10:26)
[2021-04-28] MEDS: cefTRIAXone\\ROCEPHIN 2 GM in Sodium Chloride 0.9% 100 ML IVPB SCH (12:12)
[2021-04-28] MEDS: Rivaroxaban 10 MG TAB PO SCH (17:28)
[2021-04-28] MEDS: Atorvastatin Calcium 20 MG TAB PO SCH (19:22)
[2021-04-28] MEDS: Amlodipine 10 MG TAB PO SCH (19:22)
[2021-04-28] MEDS ORDERED: HumuLIN 70/30 (300 UNITS/3 ML VIAL) SC SCH (22:00)
[2021-04-29] MEDS: Sodium Chloride 0.9% 1,000 ML IV SCH ×3 (05:08→21:04)
[2021-04-29] MEDS: Mometasone 100 MCG/PUFF (1 INHALER) INH SCH ×2 (06:13→17:48)
[2021-04-29 08:12] LABS: #Lymphocytes 0.3 thou/uL (1.20-3.40); #Monocytes 0.4 thou/uL (0.11-0.59); #Neutrophils 5.7 thou/uL (1.40-6.50); %Eosinophils 0.2 % (0.0-10.0); %Lymphocytes 5.2 % (21.0-51.0); %Monocytes 5.8 % (0.0-10.0); %Neutrophils 88.8 % (42.0-75.0); Hemoglobin 7.6 g/dL (12.0-16.0); Mean Corpuscular HGB CONC 33.4 g/dL (32.0-36.0); Mean Corpuscular Hemoglobin 31.3 pg (27.0-31.0); Mean Corpuscular Volume 93.7 fL (78.0-98.0); Mean Platelet Volume 7.9 fL (7.4-10.4); Platelet Count 145 thou/uL (130-400); Red Blood Cell (RBC) Count 2.44 mill/uL (4.20-5.40); White Blood Cell (WBC) Count 6.4 thou/uL (4.8-10.8)
[2021-04-29 08:32] LABS: ALT (SGPT) 25 U/L (8-55); AST (SGOT) 13 U/L (5-34); Albumin 2.8 g/dL (3.5-5.0); Alkaline Phosphatase 79 U/L (40-110); Anion Gap 13 mmol/L (10-20); BUN (Urea Nitrogen) 59 mg/dL (9.8-20.1); Bilirubin, Total 0.2 mg/dL (0.2-1.2); Calc. Creatinine Clearance 38 mL/min (70-130); Calcium 8.5 mg/dL (7.8-10.44); Carbon Dioxide 15 mmol/L (22-29); Chloride 113 mmol/L (98-107); Globulin 2.3 g/dL (2.4-3.5); Glucose 297 mg/dL (70-105); Magnesium 2.1 mg/dL (1.6-2.6); Phosphorus 3.6 mg/dL (2.3-4.7); Protein, Total 5.1 g/dL (6.0-8.3); Sodium 136 mmol/L (136-145)
[2021-04-29] MEDS ORDERED: HumuLIN 70/30 (300 UNITS/3 ML VIAL) SC SCH ×2 (09:00→21:00)
[2021-04-29] MEDS: cloNIDine 0.3 MG TAB PO SCH ×2 (09:23→20:50)
[2021-04-29] MEDS: Carvedilol 25 MG TAB PO SCH ×2 (09:24→20:50)
[2021-04-29] MEDS: Aspirin Chewable 81 MG TAB PO SCH (09:24)
[2021-04-29] MEDS: Dexamethasone 10 MG/ML VIAL SLOW IVP SCH (09:25)
[2021-04-29] MEDS: Ascorbic Acid 500 mg Chewable Tablet PO SCH ×2 (09:25→20:50)
[2021-04-29] MEDS: Albuterol 200 PUFF (6.7GM INHALER) INH SCH ×4 (09:39→20:48)
[2021-04-29 10:14] LABS: Hep B Surface AG-Rflx Sendout Negative (Negative); Hepatitis B Core Total Negative (Negative); Hepatitis B Surface AB-Sendout Non Reactive (.)
[2021-04-29] MEDS: Azithromycin 500 MG in Sodium Chloride 0.9% 250 ML 250 ML IVPB SCH (10:51)
[2021-04-29] MEDS: cefTRIAXone\\ROCEPHIN 2 GM in Sodium Chloride 0.9% 100 ML IVPB SCH (12:00)
[2021-04-29] MEDS: HumaLOG 300 UNITS/3 ML VIAL SC PRN ×3 (12:01→20:52)
[2021-04-29] MEDS ORDERED: Dextrose 50% Abboject 50 ML SYRINGE SLOW IVP PRN (14:41)
[2021-04-29] MEDS ORDERED: Dextrose 5% in Water 1,000 ML IV PRN (14:41)
[2021-04-29] MEDS ORDERED: hydrALAZINE 25 MG TAB PO SCH (16:15)
[2021-04-29] MEDS: Rivaroxaban 10 MG TAB PO SCH (16:41)
[2021-04-29] MEDS: hydrALAZINE 25 MG TAB PO SCH ×2 (16:41→20:50)
[2021-04-29] MEDS: Benzonatate 100 MG CAP PO PRN (20:49)
[2021-04-29] MEDS: GUAIFENESIN SF SOLN 200 MG/10 ML UDCUP PO PRN (20:49)
[2021-04-29] MEDS: Amlodipine 10 MG TAB PO SCH (20:50)
[2021-04-29] MEDS: Sodium Bicarbonate Tab 325 MG TAB PO SCH (20:50)
[2021-04-29] MEDS: Atorvastatin Calcium 20 MG TAB PO SCH (20:51)
[2021-04-30] MEDS: Sodium Chloride 0.9% 1,000 ML IV SCH ×2 (04:26→12:27)
[2021-04-30] MEDS: HumaLOG 300 UNITS/3 ML VIAL SC PRN ×4 (05:36→20:37)
[2021-04-30] MEDS: Albuterol 200 PUFF (6.7GM INHALER) INH SCH ×4 (05:37→18:38)
[2021-04-30] MEDS: Mometasone 100 MCG/PUFF (1 INHALER) INH SCH ×2 (05:37→18:38)
[2021-04-30] MEDS: Sodium Bicarbonate Tab 325 MG TAB PO SCH ×3 (09:57→20:33)
[2021-04-30] MEDS: Ascorbic Acid 500 mg Chewable Tablet PO SCH ×2 (09:58→20:32)
[2021-04-30] MEDS: Aspirin Chewable 81 MG TAB PO SCH (09:58)
[2021-04-30] MEDS: hydrALAZINE 25 MG TAB PO SCH ×4 (09:58→20:33)
[2021-04-30] MEDS: Carvedilol 25 MG TAB PO SCH ×2 (09:58→20:33)
[2021-04-30] MEDS: Dexamethasone 10 MG/ML VIAL SLOW IVP SCH (09:59)
[2021-04-30] MEDS: cloNIDine 0.3 MG TAB PO SCH ×2 (09:59→20:33)
[2021-04-30] MEDS: HumuLIN 70/30 (300 UNITS/3 ML VIAL) SC SCH ×2 (10:18→20:36)
[2021-04-30] MEDS: GUAIFENESIN SF SOLN 200 MG/10 ML UDCUP PO PRN ×2 (10:30→20:35)
[2021-04-30] MEDS: Benzonatate 100 MG CAP PO PRN ×2 (10:30→20:35)
[2021-04-30] MEDS: Azithromycin 500 MG in Sodium Chloride 0.9% 250 ML 250 ML IVPB SCH (10:31)
[2021-04-30 10:51] LABS: ALT (SGPT) 26 U/L (8-55); AST (SGOT) 14 U/L (5-34); Albumin 2.7 g/dL (3.5-5.0); Alkaline Phosphatase 77 U/L (40-110); Anion Gap 13 mmol/L (10-20); Anion Gap 15 mmol/L (10-20); BUN (Urea Nitrogen) 57 mg/dL (9.8-20.1); BUN (Urea Nitrogen) 59 mg/dL (9.8-20.1); Bilirubin, Total 0.2 mg/dL (0.2-1.2); Calc. Creatinine Clearance 42 mL/min (70-130); Calcium 8.4 mg/dL (7.8-10.44); Carbon Dioxide 14 mmol/L (22-29); Carbon Dioxide 15 mmol/L (22-29); Chloride 113 mmol/L (98-107); Chloride 114 mmol/L (98-107); Globulin 2.4 g/dL (2.4-3.5); Glucose 257 mg/dL (70-105); Glucose 264 mg/dL (70-105); Magnesium 1.9 mg/dL (1.6-2.6); Phosphorus 3.3 mg/dL (2.3-4.7); Potassium 4.8 mmol/L (3.5-5.1); Potassium 4.9 mmol/L (3.5-5.1); Protein, Total 5.1 g/dL (6.0-8.3); Sodium 136 mmol/L (136-145); Sodium 138 mmol/L (136-145)
[2021-04-30 11:09] LABS: #Lymphocytes 0.3 thou/uL (1.20-3.40); #Monocytes 0.4 thou/uL (0.11-0.59); #Neutrophils 7.7 thou/uL (1.40-6.50); %Eosinophils 0.2 % (0.0-10.0); %Lymphocytes 3.6 % (21.0-51.0); %Monocytes 4.8 % (0.0-10.0); %Neutrophils 91.5 % (42.0-75.0); Hemoglobin 8.1 g/dL (12.0-16.0); Mean Corpuscular HGB CONC 31.4 g/dL (32.0-36.0); Mean Corpuscular Hemoglobin 29.7 pg (27.0-31.0); Mean Corpuscular Volume 94.6 fL (78.0-98.0); Platelet Count 163 thou/uL (130-400); Red Blood Cell (RBC) Count 2.73 mill/uL (4.20-5.40); White Blood Cell (WBC) Count 8.5 thou/uL (4.8-10.8)
[2021-04-30] MEDS ORDERED: cefTRIAXone\\ROCEPHIN 2 GM VIAL ONE (11:47)
[2021-04-30] MEDS: cefTRIAXone\\ROCEPHIN 2 GM in Sodium Chloride 0.9% 100 ML IVPB SCH (12:25)
[2021-04-30] MEDS: Rivaroxaban 10 MG TAB PO SCH (18:38)
[2021-04-30] MEDS: Atorvastatin Calcium 20 MG TAB PO SCH (20:32)
[2021-04-30] MEDS: Amlodipine 10 MG TAB PO SCH (20:32)
[2021-05-01] MEDS: Sodium Chloride 0.9% 1,000 ML IV SCH ×2 (05:05→14:12)
[2021-05-01] MEDS: Mometasone 100 MCG/PUFF (1 INHALER) INH SCH (06:18)
[2021-05-01] MEDS: HumaLOG 300 UNITS/3 ML VIAL SC PRN ×3 (06:18→12:13)
[2021-05-01] MEDS: Albuterol 200 PUFF (6.7GM INHALER) INH SCH ×2 (06:19→12:21)
[2021-05-01 07:30] LABS: #Lymphocytes 0.3 thou/uL (1.20-3.40); #Monocytes 0.5 thou/uL (0.11-0.59); #Neutrophils 7.3 thou/uL (1.40-6.50); %Eosinophils 0.1 % (0.0-10.0); %Monocytes 5.7 % (0.0-10.0); %Neutrophils 90.2 % (42.0-75.0); Hemoglobin 7.9 g/dL (12.0-16.0); Mean Corpuscular HGB CONC 32.3 g/dL (32.0-36.0); Mean Corpuscular Hemoglobin 30.3 pg (27.0-31.0); Mean Corpuscular Volume 93.8 fL (78.0-98.0); Platelet Count 159 thou/uL (130-400); RBC Distribution Width 14.1 % (11.5-14.5); Red Blood Cell (RBC) Count 2.62 mill/uL (4.20-5.40); White Blood Cell (WBC) Count 8.1 thou/uL (4.8-10.8)
[2021-05-01 07:54] LABS: ALT (SGPT) 23 U/L (8-55); AST (SGOT) 12 U/L (5-34); Albumin 2.7 g/dL (3.5-5.0); Alkaline Phosphatase 71 U/L (40-110); Anion Gap 12 mmol/L (10-20); BUN (Urea Nitrogen) 62 mg/dL (9.8-20.1); Bilirubin, Total 0.3 mg/dL (0.2-1.2); Calc. Creatinine Clearance 40 mL/min (70-130); Calcium 8.6 mg/dL (7.8-10.44); Carbon Dioxide 17 mmol/L (22-29); Chloride 114 mmol/L (98-107); Globulin 2.3 g/dL (2.4-3.5); Glucose 192 mg/dL (70-105); Magnesium 1.9 mg/dL (1.6-2.6); Phosphorus 3.6 mg/dL (2.3-4.7); Potassium 4.9 mmol/L (3.5-5.1); Sodium 138 mmol/L (136-145)
[2021-05-01] MEDS: cloNIDine 0.3 MG TAB PO SCH (08:31)
[2021-05-01] MEDS: Ascorbic Acid 500 mg Chewable Tablet PO SCH (08:31)
[2021-05-01] MEDS: Carvedilol 25 MG TAB PO SCH (08:31)
[2021-05-01] MEDS: Aspirin Chewable 81 MG TAB PO SCH (08:31)
[2021-05-01] MEDS: Sodium Bicarbonate Tab 325 MG TAB PO SCH (08:31)
[2021-05-01] MEDS: Dexamethasone 10 MG/ML VIAL SLOW IVP SCH (08:32)
[2021-05-01] MEDS: hydrALAZINE 25 MG TAB PO SCH ×2 (08:32→13:55)
[2021-05-01] MEDS: HumuLIN 70/30 (300 UNITS/3 ML VIAL) SC SCH (08:39)
[2021-05-01] MEDS: cefTRIAXone\\ROCEPHIN 2 GM in Sodium Chloride 0.9% 100 ML IVPB SCH (12:12)
[2021-05-01 14:10] VITALS: BP 158/72; TEMP 98.5
[2021-05-01] MEDS ORDERED: Apixaban 5 MG TAB PO SCH ×2 (21:00)
[2021-05-09] MEDS ORDERED: Apixaban 5 MG TAB PO SCH (09:00)
== END 2021-05-01 16:12 | disposition home or self-care (01) | DRG 177 ==
LOC: T4-A 22:53
PROVIDERS: ADMIT Student in an Organized Health Care Education/Training Program; ATTEND Family Medicine
PROC: 8E0ZXY6 Isolation (ICD-10-PCS; principal; 2021-04-24)
DX: U07.1 COVID-19 (principal); J15.9 Unspecified bacterial pneumonia; N17.0 Acute kidney failure with tubular necrosis; N18.4 Chronic kidney disease, stage 4 (severe); I50.32 Chronic diastolic (congestive) heart failure; I82.442 Acute embolism and thrombosis of left tibial vein; E87.2 Acidosis; E86.0 Dehydration; E11.22 Type 2 diabetes mellitus with diabetic chronic kidney disease; D63.1 Anemia in chronic kidney disease; D50.9 Iron deficiency anemia, unspecified; R74.01 Elevation of levels of liver transaminase levels; R82.998 Other abnormal findings in urine; E78.5 Hyperlipidemia, unspecified; E66.9 Obesity, unspecified; E88.09 Other disorders of plasma-protein metabolism, not elsewhere classified; I08.1 Rheumatic disorders of both mitral and tricuspid valves; Z68.34 Body mass index [BMI] 34.0-34.9, adult; Z88.8 Allergy status to other drugs, medicaments and biological substances; Z88.3 Allergy status to other anti-infective agents; Z91.040 Latex allergy status; Z86.718 Personal history of other venous thrombosis and embolism; Z98.51 Tubal ligation status; Z79.899 Other long term (current) drug therapy; Z79.01 Long term (current) use of anticoagulants; Z79.82 Long term (current) use of aspirin; Z79.4 Long term (current) use of insulin; Z83.3 Family history of diabetes mellitus
CPT/HCPCS: 36415; 36416; 71045; 76705; 76770; 80053; 81001; 82570; 82728; 83036; 83540; 83550; 83735; 83880; 84100; 84300; 84540; 85025; 86704; 86705; 86706; 86707; 86803; 87040; 87086; 87340; 87350; 87449; 87899; 93306; 93970; J0456; J0696; J1100; J1815; J2405; J2765; J3490; J7050; Q0162